=== PATIENT | female | born 1995 ===

== ENCOUNTER 2024-01-21 08:00 | Outpatient (AMB) | payer OTHER, SELFPAY ==
--- NOTE | 2024-01-21 08:24 | MHC.OFFVIS ---
Vital Signs 01/21/24 08:37 Height 5 ft 2 in Weight 145 lb BMI 26.5 BP 112/64 Blood Pressure Location Lt brachial Position Sitting Respiration 16 Pulse 85 Pulse Source Pulse Oximeter Pulse Oximetry (%) 95 Oxygen Delivery Method Room Air Intake Visit Reasons: +KURT Intake Note: Patient presents for +KURT. I feel pain in my jaw, both shoulders, neck, right hand, both elbows, both wrist, both hips, both knees and both knees. I been feeling this pain since April. I take Tylenol and Ibuprofen and is only short term relive. I try Prednisone and it really helps. Allergies carbamazepine Allergy (Mild, Verified 01/21/24 08:33) Hives Medication List - Last Reconciled 01/21/24 by Karla Avery MD fluoxetine (Prozac) 20 mg PO DAILY levonorgestrel-ethinyl estrad 0.1-20 mg-mcg 1 tab PO DAILY HPI Comments Details: Patient is a 28-year-old female who presents today for evaluation of polyarthralgias in the setting of positive KURT Patient states her history starts from when she was 14 years old when she started having polyarthralgias and was evaluated by a physician in [place]. At that time she was told she has fibromyalgia that her pain was related to her stress. 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 No medication was prescribed She again started to have issues at the age of 23 but was again told that it was related to fibromyalgia. In April 2023 patient started to have episodic joint pain involving hands, wrists, elbows, knees. These joint pains would not be associated with swelling but would be very responsive to prednisone given by her PCP. In June 2023 she was complaining of bilateral jaw pain and was initially thought to have TMJ arthritis but then was subsequently diagnosed with trigeminal neuralgia and started on carbamazepine. While on carbamazepine she started to experience ulcers in the mouth and an erythematous rash involving her entire body. The carbamazepine was stopped and she is currently on steroids (prednisone 40 mg). Has a very strong family history of lupus on both mom and dad's side. With respect to the joint pain she denies prolonged morning stiffness. She does note that sometimes her joints are swollen to the point where she can not get her rings on. Denies photosensitivity, alopecia, sicca symptoms, lymphadenopathy, chest pain/shortness of breath, foamy urine, lower extremity edema, muscle weakness, Raynaud's Also denies history of seizure, CVA, psychosis, history of kidney problems, history of cytopenias, history of VTE including PE or DVTs OB History: Never been [facility] Medical History (Updated 01/21/24 @ 09:11 by Karla Avery MD) Polyarthralgia Family History (Updated 01/21/24 @ 08:37 by AYSHA Samuel) Mother History of thyroid disease Social History (Updated 01/21/24 @ 08:36 by AYSHA Samuel) Household Members: Spouse Housing: Apartment Alcohol intake: current Comment: Rare Patient Tobacco Use Status: Never used Tobacco Review of Systems Const Details: Review of Systems Constitutional: Denies fever, chills, weight loss ENT: Denies vision changes, eye pain or eye redness, dental caries, dry mouth GI: Denies nausea, vomiting, diarrhea, abdominal pain, change in BM Pulm: Denies SOB, CASTELLANOS, hemoptysis, wheezing Cards: Denies chest pain, palpitations Skin: Denies Raynaud's, rash, nail changes, photosensitivity, CIVIL DRAFTSMAN: Denies headaches, weakness, paresthesias, recurrent falls MSK: as per HPI All other systems reviewed and are unremarkable except noted above Physical Exam Vital Signs: Last Vital Signs Pulse 85 01/21/24 08:37 Resp 16 01/21/24 08:37 BP 112/64 01/21/24 08:37 Pulse Ox 95 01/21/24 08:37 Oxygen Delivery Method Room Air 01/21/24 08:37 BMI result Body Mass Index 26.5 Physical Examination CONSTITUITIONAL Patient alert and cooperative. Well appearing and in no apparent painful distress HEENT Conjunctiva and sclera clear. ?Pupils equal round and reactive to light. ?No lymphadenopathy. ?Ulcer noted to the buccal surface anteriorly CHEST/RESPIRATORY SYSTEM Normal respiratory effort and able to speak in complete sentences. ?Clear to auscultation bilaterally. ?No crackles, rales, rhonchi, wheezes heard. CARDIAC SYSTEM Regular rate and rhythm. ?S1 and S2 heard no murmurs. ?Radial pulses intact bilaterally MSK Hands: ?Good paper final inspector strength bilaterally. No deformities noted. ?No synovitis noted to the MCPs, PIPs or DIPs. ?No tenderness to palpation of these joints. Wrists: ?Full range of motion at the wrists without pain. ?No tenderness to palpation or synovitis noted to the wrists. Elbows: Full range of motion without pain. No tenderness, weakness, swelling, increased warmth or erythema. Shoulders: Full range of motion without pain. No tenderness, weakness, swelling, increased warmth or erythema. Hips: Full range of motion without pain. Hip bursa: No tenderness to palpation Knees: ?Full range of motion. ?No tenderness, swelling, increased warmth or erythema.?No effusion or crepitations Ankles: Full range of motion. ?No tenderness, swelling, increased warmth or erythema.? Feet: ?Negative squeeze test. ?No tenderness to palpation or swelling of the MTPs. Tender points:??No tenderness to palpation of the neck, shoulders, chest, elbows, hips, buttocks or knees. SKIN Faint erythematous rash overlying her bilateral cheeks and nose could be consistent with a malar rash. Results Reviewed Results Reviewed: CMP 11/05/2023 NA 137 K 4.1 Cl 99 CO2 28 CR 0.8 BUN 12 AST 12 ALT 15 ALP 55 CBC 11/05/2023 HB 12.5 WBC 8.7 PLT 332 ESR 1 KURT 1:320 speckled Lyme negative RF<10 CCP 6 TSH 1.365 Assessment & Plan Assessment & Plan (1) Polyarthralgia: Code(s): M25.50 - Pain in unspecified joint Category: Medical Plan: #Polyarthralgia Patient with polyarthralgia in the setting of a positive KURT. At this time there was no evidence of synovitis on examination however the patient is currently taking 40 mg of prednisone which would mask any inflammatory synovitis. Her history is concerning for connective tissue disease especially given her malar type rash on her face, the ulcer in her mouth and her history of joint pain. I discussed with the patient and , she is to finish her steroids in 1 week. I asked her to wait 1 month prior to doing the following blood work. Would like to see what her numbers look like off of prednisone. She will follow up 2 weeks after she does blood work Plan - CBC, CMP, ESR, CRP, C3, C4, APS labs, Sjogrens Ab, Scleroderma Ab, UA, UPCR, RF and CCP - RTC 1 week after blood work (End of February or early Mar) Plan I spent 45 minutes reviewing the record and labs, seeing the patient, discussing the treatment plan and documenting in the medical record ? Orders: Orders Complement C3 Today M25.50 - Pain in unspecified joint Erythrocyte Sedimentation Rate Today M25.50 - Pain in unspecified joint UA w Microscopic Today M25.50 - Pain in unspecified joint Sjogren's Antibodies Today M25.50 - Pain in unspecified joint Protein Creatinine Ratio, Ur Today M25.50 - Pain in unspecified joint Cardiolipin Antibodies Today M25.50 - Pain in unspecified joint Cyclic Citrullinated Peptide Today M25.50 - Pain in unspecified joint Rheumatoid Factor Today M25.50 - Pain in unspecified joint Anti DNA DS Antibody Today M25.50 - Pain in unspecified joint Anti Extractable Nuclear Ag Today M25.50 - Pain in unspecified joint KURT Reflex Titer and Pattern Today M25.50 - Pain in unspecified joint Complement C4 Today M25.50 - Pain in unspecified joint Complete Blood Count Auto Diff Today M25.50 - Pain in unspecified joint Comprehensive Met. Panel Today M25.50 - Pain in unspecified joint C Reactive Protein Today M25.50 - Pain in unspecified joint Scleroderma 70 Antibody Today M25.50 - Pain in unspecified joint Beta-2 Glycoprotein Antibody Today M25.50 - Pain in unspecified joint Lupus Anticoagulant Panel Today M25.50 - Pain in unspecified joint DNA Double Stranded-Crithidia Today M25.50 - Pain in unspecified joint Coding Level of Care Code New Pt Level 4 (57160) Complex EM visit Add On G2211 Diagnoses Polyarthralgia M25.50
[2024-01-21 08:37] VITALS: BP 112/64; PULSE 85; RESP 16; O2SAT 95; BMI 26.5
== END 2024-01-21 09:13 | disposition home or self-care (01) ==
PROVIDERS: Visit Provider Student in an Organized Health Care Education/Training Program
DX: M25.50 Pain in unspecified joint (principal)
CPT/HCPCS: 99204; G2211

== ENCOUNTER → 2024-01-21 08:00 | Outpatient (BNVA) | payer OTHER, SELFPAY | PROVIDERS: Visit Provider Student in an Organized Health Care Education/Training Program ==

== ENCOUNTER 2024-03-10 10:09 | Outpatient (REF) | payer OTHER, SELFPAY ==
[2024-03-10 10:39] LABS: MANUAL DIFF FLAG NO
[2024-03-10 11:03] LABS: Basophils Absolute Auto 0.1 X10*3/uL (0.0-0.2); Basophils Percent Auto 0.8 % (0-2); Eosinophils Absolute Auto 0.3 X10*3/uL (0.0-0.4); Eosinophils Percent Auto 4.2 % (0-4); Hematocrit 37.4 % (37.0-47.0); Hemoglobin 12.7 g/dl (12.0-16.0); Imm Gran Abs Auto 0.02 X10*3/uL (0.00-0.03); Imm Gran Pct Auto 0.3 % (0.0-0.4); Lymphocytes Absolute Auto 2.1 X10*3/uL (1.2-4.9); Lymphocytes Percent Auto 31.8 % (20-40); Mean Corpuscular Hemoglobin 33.3 pg (27.0-33.0); Mean Corpuscular Volume 98.2 fL (80.0-98.0); Mean Platelet Volume 9.6 fL (9.4-12.3); Monocytes Absolute Auto 0.5 X10*3/uL (0.1-1.2); Monocytes Percent Auto 7.5 % (2-11); Neutrophils Absolute Auto 3.6 x10*3/uL (2.0-8.3); Neutrophils Percent Auto 55.4 % (45-73); Platelet Count 312 X10*3/uL (160-400); Red Blood Count 3.81 X10*6/uL (4.20-5.50); Red Cell Distribution Width 11.9 % (11.0-16.0); White Blood Count 6.4 X10*3/uL (4.8-10.8)
[2024-03-10 11:10] LABS: Appearance Urine Clear; Color Urine Yellow; Glucose Urine UA Negative (Negative); Leukocyte Esterase Urine Trace (Negative); Nitrite Urine Negative (Negative); UMIC TRIGGER UA YES; Urine Blood Negative (Negative); Urine Ketones Negative (Negative); Urine Protein Negative (Neg-Trace)
[2024-03-10 11:19] LABS: Bacteria Urine None Seen (None Seen); Hyaline Casts Urine 0-2 /LPF (0-2); RBC Urine 0-2 /HPF (0-2); WBC Urine 0-5 /HPF (0-5)
[2024-03-10 11:41] LABS: Erythrocyte Sedimentation Rate 10 MM/HR (0-20)
[2024-03-10 11:46] LABS: Rheumatoid Factor < 13.0 IU/mL (<15.0)
[2024-03-10 11:51] LABS: Alanine Aminotransferase 13 U/L (0-31); Alkaline Phosphatase 68 U/L (39-117); Anion Gap 10 (12-20); Aspartate Amino Transferase 24 U/L (5-31); Bilirubin Total 0.3 mg/dL (0.0-1.0); Blood Urea Nitrogen 10 mg/dL (9-16); C Reactive Protein 2.52 mg/dL (< or = 0.50); Calcium 8.7 mg/dL (8.4-10.2); Carbon Dioxide 23 mmol/L (22-29); Chloride 101 mmol/L (96-108); Estimated Glomerular Filt Rate > 60; Glucose Random 72 mg/dL (60-115); Sodium 130 mmol/L (135-145); Total Protein 7.3 g/dL (6.5-8.0)
[2024-03-10 12:18] LABS: Creatinine Urine 105.01 mg/dL; Protein/Creatinine Ratio, Ur 0.08 (<0.2); Total Protein Urine Random 8 mg/dL (<12)
[2024-03-11 12:59] LABS: Complement C3 157 mg/dL (83-193)
[2024-03-11 16:23] LABS: Anti DNA DS Antibody <1 IU/mL; Antibody to SS-A Antigen <1.0 NEG AI (<1.0 NEG); Antibody to SS-B Antigen <1.0 NEG AI (<1.0 NEG); SM/Ribonucleoprotein Ab <1.0 NEG AI (<1.0 NEG); Scleroderma 70 Antibody <1.0 NEG AI (<1.0 NEG); Smith Protein <1.0 NEG AI (<1.0 NEG)
[2024-03-11 16:28] LABS: Cardiolipin IgG Ab <2.0 GPL-U/mL; Cardiolipin IgM Ab <2.0 MPL-U/mL
[2024-03-12 20:54] LABS: Cyclic Citrullinated Peptide <16 UNITS
[2024-03-13 16:13] LABS: DNAds, Crithidia Antibody Negative (Negative)
[2024-03-14 21:52] LABS: PTT (LAC) Screen 33 sec (<=40)
[2024-03-16 05:19] LABS: Beta-2 Glycoprotein IgA <2.0 U/mL (<20.0); Beta-2 Glycoprotein IgG <2.0 U/mL (<20.0); Beta-2 Glycoprotein IgM <2.0 U/mL (<20.0)
[2024-03-16 15:32] LABS: Anti Nuclear Antibody Pattern Nuclear, Speckled; Anti Nuclear Antibody Screen POSITIVE (NEGATIVE)
== END 2024-03-10 10:10 | disposition home or self-care (01) ==
LOC: HO.LAB 10:09
PROVIDERS: PCP Family Medicine; Visit Provider Student in an Organized Health Care Education/Training Program
DX: M25.50 Pain in unspecified joint (principal)
CPT/HCPCS: 36415; 80053; 81001; 82570; 84156; 85025; 85597; 85598; 85613; 85652; 85730; 86038; 86039; 86140; 86146; 86147; 86160; 86200; 86225; 86235; 86255; 86431

== ENCOUNTER 2024-03-23 07:25 | Outpatient (AMB) | payer OTHER, SELFPAY ==
--- NOTE | 2024-03-23 07:27 | MHC.OFFVIS ---
Vital Signs 03/23/24 07:35 Height 5 ft 2 in BMI Reason not done Patient refused/unable BP 112/60 Blood Pressure Location Rt brachial Position Sitting Respiration 16 Pulse 81 Pulse Source Pulse Oximeter Pulse Oximetry (%) 97 Oxygen Delivery Method Room Air Intake Visit Reasons: follow up Intake Note: patient presents for follow up. Allergies carbamazepine Allergy (Mild, Verified 01/21/24 08:33) Hives Medication List - Last Reconciled 03/23/24 by Karla Avery MD fluoxetine (Prozac) 20 mg PO DAILY gabapentin 300 mg PO BID levonorgestrel-ethinyl estrad 0.1-20 mg-mcg 1 tab PO DAILY oxcarbazepine 600 mg PO BID HPI Comments Details: Patient is a 28-year-old female with depression and trigeminal neuralgia here today for follow up of polyarthralgias Interval History: Patient last seen 01/2024. At that time she was being evaluated for polyarthralgias. Of note she was on 40 mg of prednisone which impeded the examination as there was no evidence of synovitis. Plan at that time was for her to complete her Prednisone and be off the medication for at least 2 weeks prior to checking her blood work and then following up with the me. Today, Patient has been off the prednisolone for 4 weeks. She is noticing worsening joint stiffness up to an hour. Rashes. She also notes that because of her worsening joint pain she has been eating more which has caused her to gain weight which has also increased her depression. Rheumatologic History: Initial history: Patient states her history starts from when she was 14 years old when she started having polyarthralgias and was evaluated by a physician in [place]. At that time she was told she has fibromyalgia that her pain was related to her stress. 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 No medication was prescribed She again started to have issues at the age of 23 but was again told that it was related to fibromyalgia. In April 2023 patient started to have episodic joint pain involving hands, wrists, elbows, knees. These joint pains would not be associated with swelling but would be very responsive to prednisone given by her PCP. In June 2023 she was complaining of bilateral jaw pain and was initially thought to have TMJ arthritis but then was subsequently diagnosed with trigeminal neuralgia and started on carbamazepine. While on carbamazepine she started to experience ulcers in the mouth and an erythematous rash involving her entire body. The carbamazepine was stopped and she is currently on steroids (prednisone 40 mg). Has a very strong family history of lupus on both mom and dad's side. With respect to the joint pain she denies prolonged morning stiffness. She does note that sometimes her joints are swollen to the point where she can not get her rings on. Denies photosensitivity, alopecia, sicca symptoms, lymphadenopathy, chest pain/shortness of breath, foamy urine, lower extremity edema, muscle weakness, Raynaud's Also denies history of seizure, CVA, psychosis, history of kidney problems, history of cytopenias, history of VTE including PE or DVTs OB History: Never been Current Rheumatology Medication(s): [facility] Medical History (Updated 03/23/24 @ 09:17 by Karla Avery MD) Fibromyalgia Undifferentiated connective tissue disease Polyarthralgia Family History Mother History of thyroid disease Social History Household Members: Spouse Housing: Apartment Alcohol intake: current Comment: Rare Patient Tobacco Use Status: Never used Tobacco Review of Systems Const Details: Review of Systems Constitutional: Denies fever, chills, weight loss ENT: Denies vision changes, eye pain or eye redness, dental caries, dry mouth GI: Denies nausea, vomiting, diarrhea, abdominal pain, change in BM Pulm: Denies SOB, CASTELLANOS, hemoptysis, wheezing Cards: Denies chest pain, palpitations Skin: Denies Raynaud's, rash, nail changes, photosensitivity, BODY AND FRAME MAN: Denies headaches, weakness, paresthesias, recurrent falls MSK: as per HPI All other systems reviewed and are unremarkable except noted above Physical Exam Vital Signs: Last Vital Signs Pulse 81 03/23/24 07:35 Resp 16 03/23/24 07:35 BP 112/60 03/23/24 07:35 Pulse Ox 97 03/23/24 07:35 Oxygen Delivery Method Room Air 03/23/24 07:35 Vital signs reviewed Physical Examination CONSTITUITIONAL Patient alert and cooperative. Well appearing and in no apparent painful distress HEENT Conjunctiva and sclera clear. ?Pupils equal round and reactive to light. ?No lymphadenopathy. ? CHEST/RESPIRATORY SYSTEM Normal respiratory effort and able to speak in complete sentences. ?Clear to auscultation bilaterally. ?No crackles, rales, rhonchi, wheezes heard. CARDIAC SYSTEM Regular rate and rhythm. ?S1 and S2 heard no murmurs. ?Radial pulses intact bilaterally MSK Hands: ?Good dog walker strength bilaterally. No deformities noted. ?No synovitis noted to the MCPs, PIPs or DIPs. ?No tenderness to palpation of these joints. Wrists: ?Full range of motion at the wrists without pain. ?No tenderness to palpation or synovitis noted to the wrists. Elbows: Full range of motion without pain. No tenderness, weakness, swelling, increased warmth or erythema. Shoulders: Full range of motion without pain. No tenderness, weakness, swelling, increased warmth or erythema. Hips: Full range of motion without pain. Hip bursa: Tenderness to palpation bilaterally Knees: ?Full range of motion. ?No tenderness, swelling, increased warmth or erythema.?No effusion or crepitations Ankles: Full range of motion. ?No tenderness, swelling, increased warmth or erythema.? Feet: ?Negative squeeze test. ?No tenderness to palpation or swelling of the MTPs. Tender points: Patient with several tender points including bilateral trapezius, supraspinatus, greater trochanters, anterior costochondral junctions, bilateral pes anserine bursa locations, bilateral gluteal areas, bilateral suboccipital muscle insertions, lateral malleoli SKIN Skin intact without rashes. Results Reviewed Results Reviewed: Laboratory Tests 03/10/24 10:37 WBC 6.4 RBC 3.81 L Hgb 12.7 Hct 37.4 Plt Count 312 Eos % (Auto) 4.2 H ESR 10 Sodium 130 L Potassium 4.0 Chloride 101 Carbon Dioxide 23 BUN 10 Creatinine 0.66 Calcium 8.7 Total Bilirubin 0.3 AST 24 ALT 13 Alkaline Phosphatase 68 C-Reactive Protein 2.52 H Rheumatoid Factor < 13.0 Cycl Citrul Peptide IgG <16 KURT Screen POSITIVE A KURT Titer 1:160 H KURT Pattern Nuclear, Speckled A SS-A/Ro Antibody <1.0 NEG SS-B/La Antibody <1.0 NEG Sm (Slade) Antibody <1.0 NEG SM/AIRLINE LOUNGE RECEPTIONIST IgG Antibody <1.0 NEG Scl-70 Scleroderma Ab <1.0 NEG Double Strand DNA Ab <1 Anti-ds DNA (Crithidia) Negative Beta-2-GPI IgG Ab <2.0 Beta-2-GPI IgA Ab <2.0 Beta-2-GPI IgM Ab <2.0 Anti-Cardiolipin IgG Ab <2.0 Anti-Cardiolipin IgM Ab <2.0 Complement C3 157 Complement C4 20 Assessment & Plan Assessment & Plan (1) Undifferentiated connective tissue disease: Code(s): M35.9 - Systemic involvement of connective tissue, unspecified Category: Medical Plan: #UCTD Patient is a 28-year-old female here today for evaluation of polyarthralgias. Of note her blood work came back with a positive KURT 1:160 and significantly elevated CRP 2.5. Given her inflammatory type joint pain symptoms and her rash I think it is reasonable for her to be diagnosed with undifferentiated connective tissue disease/lupus like. Her lupus labs including complement, double-stranded DNA and Slade were all normal. Based on this diagnosis Plaquenil would be the best medication to start with. Plan - Hydroxychloroquine 200mg bid - RTC 4 months - Labs before visit: CBC, CMP, ESR, CRP, C3, C4, dsDNA, UA, UPC (2) Fibromyalgia: Code(s): M79.7 - Fibromyalgia Category: Medical Plan: #Fibromyalgia Patient also has a component of fibromyalgia was evidenced by multiple tender points on examination. She is already on gabapentin 300 mg p.o. b.i.d.. We will try the Plaquenil 1st and see what improvement we can get with that before trialing other fibromyalgia type medications. Plan - Continue gabapentin 300mg bid - Encouraged light exercise and stretching - Endocrinology referral to evaluate for GLP 1 injections for weight loss Plan I spent 30 minutes reviewing the record and labs, taking a history, examining the patient, discussing the treatment plan and documenting in the medical record Orders: Orders Complement C4 3 Months M35.9 - Systemic involvement of connective tissue, unspecified Comprehensive Met. Panel 3 Months M35.9 - Systemic involvement of connective tissue, unspecified Protein Creatinine Ratio, Ur 3 Months M35.9 - Systemic involvement of connective tissue, unspecified Complement C3 3 Months M35.9 - Systemic involvement of connective tissue, unspecified Complete Blood Count Auto Diff 3 Months M35.9 - Systemic involvement of connective tissue, unspecified C Reactive Protein 3 Months M35.9 - Systemic involvement of connective tissue, unspecified Erythrocyte Sedimentation Rate 3 Months M35.9 - Systemic involvement of connective tissue, unspecified UA w Microscopic 3 Months M35.9 - Systemic involvement of connective tissue, unspecified Referrals Endocrinology Referral R63.5 - Abnormal weight gain Medications: New hydroxychloroquine (Plaquenil) 200 mg PO BID 180 tabs 1RF M35.9 - Systemic involvement of connective tissue, unspecified Coding Level of Care Code Est Pt Level 4 (29440) Complex EM visit Add On G2211 Diagnoses Undifferentiated connective tissue disease M35.9 Fibromyalgia M79.7
[2024-03-23 07:35] VITALS: BP 112/60; PULSE 81; RESP 16; O2SAT 97
== END 2024-03-23 08:19 | disposition home or self-care (01) ==
PROVIDERS: Visit Provider Student in an Organized Health Care Education/Training Program
DX: M35.89 Other specified systemic involvement of connective tissue (principal); M79.7 Fibromyalgia
CPT/HCPCS: 99214; G2211

== ENCOUNTER → 2024-03-23 07:25 | Outpatient (BNVA) | payer OTHER, SELFPAY | PROVIDERS: Visit Provider Student in an Organized Health Care Education/Training Program ==

== ENCOUNTER 2024-04-06 07:48 | Outpatient (AMB) | payer OTHER, SELFPAY ==
[2024-04-06 07:49] VITALS: BP 102/70; PULSE 76; O2SAT 95
--- NOTE | 2024-04-06 07:49 | MHC.OFFVIS ---
Vital Signs 04/06/24 07:49 Height 5 ft 2 in Weight 163 lb 12.855 oz BMI 30.0 BP 102/70 Blood Pressure Location Lt brachial Position Sitting Pulse 76 Pulse Source Pulse Oximeter Pulse Oximetry (%) 95 Oxygen Delivery Method Room Air Intake Visit Reasons: Abnormal weight gain Intake Note: New patient internally referred by Dr. Avery for Abnormal weight gain, patient requesting assistance for eval for GLP 1. Air Valve Mechanic Required: No Accompanied by: Spouse Allergies carbamazepine Allergy (Mild, Verified 04/06/24 07:57) Hives Medication List - Last Reconciled 04/06/24 by Yair Meadows MD fluoxetine (Prozac) 20 mg PO DAILY gabapentin 300 mg PO BID hydroxychloroquine (Plaquenil) 200 mg PO BID levonorgestrel-ethinyl estrad 0.1-20 mg-mcg 1 tab PO DAILY ondansetron HCl 4 mg PO Q8H oxcarbazepine 600 mg PO BID semaglutide 0.25 mg subcut QWEEK HPI Comments Details: This is a 28-year-old white female sent to endocrinology for evaluation of normal weight gain. Patient states weight gain of lbs over short period of time . She has not tried formal diets . She has seen a naval police coxswain in [place] . .She was prescribed semaglutide by RO started last wk. Feels nauseous but better with Zofran . Bowel movements more frequent with semaglutidee. She is currently on a control pill. She is not actively planning . Snores at night . Not taking steroids on regular basis . No thyroid problems . No sx of Antonio's Syndrome . [facility] Medical History (Updated 04/06/24 @ 07:57 by Yair Meadows MD) Weight gain Fibromyalgia Undifferentiated connective tissue disease Polyarthralgia Family History Mother History of thyroid disease Social History Household Members: Spouse Housing: Apartment Alcohol intake: current Comment: Rare Patient Tobacco Use Status: Never used Tobacco Physical Exam Vital Signs: Last Vital Signs Pulse 76 04/06/24 07:49 BP 102/70 04/06/24 07:49 Pulse Ox 95 04/06/24 07:49 Oxygen Delivery Method Room Air 04/06/24 07:49 BMI result Body Mass Index 30.0 Const Other: There are no cushingoid features. Thyroid gland is normal size weighs about 15 g Assessment & Plan Assessment & Plan (1) Weight gain: Code(s): R63.5 - Abnormal weight gain Category: Medical Plan: This is a 28-year-old white female with a history of abnormal weight gain. There was no clear endocrine etiology behind the patient's symptoms but rule out thyroid disease plan is to check a TSH and free T4. Will have patient follow up with the naval police coxswain. Will have patient stop the compounded Wegovy and I prescribed FDA approved Wegovy 0.25 mg Q weekly. . Went over side effects of Wegovy including but not limited to nausea, vomiting rare risk of pancreatitis. Also suggested patient talk to primary provider about getting a sleep study to rule out sleep apnea. . Will have patient follow up with Melissa Acosta NP in 1 month Orders: Orders Free T4 (Free Thyroxine) Today R63.5 - Abnormal weight gain Thyroid Stimulating Hormone Today R63.5 - Abnormal weight gain Medications: New semaglutide for 4 weeks 0.25 mg (0.368 mL) subcut QWEEK 3 mL 5RF Coding Level of Care Code New Pt Level 4 (40274) Diagnoses Weight gain R63.5
== END 2024-04-06 08:36 | disposition home or self-care (01) ==
PROVIDERS: Visit Provider Internal Medicine Endocrinology, Diabetes & Metabolism
DX: R63.5 Abnormal weight gain (principal)
CPT/HCPCS: 99204

== ENCOUNTER 2024-04-06 08:39 | Outpatient (REF) | payer OTHER, SELFPAY ==
[2024-04-06 11:11] LABS: Free T4 (Free Thyroxine) 0.89 ng/dL (0.71-1.85); Thyroid Stimulating Hormone 1.21 uIU/mL (0.32-4.0)
== END 2024-04-06 08:40 | disposition home or self-care (01) ==
LOC: HO.10HDL 08:39
PROVIDERS: Visit Provider Internal Medicine Endocrinology, Diabetes & Metabolism
DX: R63.5 Abnormal weight gain (principal)
CPT/HCPCS: 36415; 84439; 84443

== ENCOUNTER 2024-05-04 07:48 | Outpatient (AMB) | payer OTHER, SELFPAY ==
--- NOTE | 2024-05-04 06:58 | A.OFFVIS_ITS ---
Vital Signs 05/04/24 07:50 Height 5 ft 2 in Weight 154 lb 1.65 oz BMI 28.2 BP 102/68 Blood Pressure Location Rt brachial Position Sitting Pulse 83 Pulse Source Pulse Oximeter Pulse Oximetry (%) 99 Oxygen Delivery Method Room Air Intake Visit Reasons: weight gain Intake Note: Patient presents today to re-establish treatment for Weight Gain, last seen Dr Yair Meadows: Vacuum Technician Required: No Accompanied by: Self / Same As Patient Allergies carbamazepine Allergy (Mild, Verified 05/04/24 07:51) Hives Medication List - Last Reconciled 05/04/24 by Melissa Wolf NP fluoxetine (Prozac) 20 mg PO DAILY gabapentin 300 mg PO BID hydroxychloroquine (Plaquenil) 200 mg PO BID levonorgestrel-ethinyl estrad 0.1-20 mg-mcg 1 tab PO DAILY oxcarbazepine 600 mg PO BID tirzepatide (weight loss) (Zepbound) 2.5 mg (0.5 mL) subcut QWEEK 28 days HPI Comments Details: This is a 29-year-old white female sent to endocrinology for evaluation of normal weight gain. She was seen by Dr. Meadows one month ago. At that time he advised she stop compounded semaglutide which was prescribed by [facility] and a prescription for Zepbound 2.5mg was started. At this point in time she is [place] paying for Zepbound as her insurance requires participation in a three-month program prior to approval of weight loss medication. She has lost 9 pounds since her initial visit one month ago. She is being seen weekly by a record press tender in [place]. She has a eating disorder of body dysphoria. 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 She does not log her intake of food as she feels this triggers guilt. She balances her food and does eat 3 healthy meals per day. She uses mindfulness, meditation and yoga for stress management. She is currently doing a conquer challenge which involves selecting a mythical figure (Kiran Fernández) and doing a physical challenge of completing 70 miles in 3 months. She likes to bike in his planning to do this. 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 When she was taking the compounded semaglutide she was having some nausea which was relieved by Zofran. She has discontinued the Zofran since starting Zepbound. Her bowel movements have been more frequent. She is currently taking control pills and is not actively planning . She is consistently using condoms in addition to the control pill while she is taking Zepbound. She has a history of low sodium in his not certain what type of workup has been done in the past. She has follow up with her PCP who ordered the electrolytes. [facility] Medical History (Updated 05/04/24 @ 07:01 by Melissa Wolf NP) Obesity Weight gain Fibromyalgia Undifferentiated connective tissue disease Polyarthralgia Family History Mother History of thyroid disease Social History Household Members: Spouse Housing: Apartment Alcohol intake: current Comment: Rare Patient Tobacco Use Status: Never used Tobacco Physical Exam Const Other: Absence of Cushingoid features. Absence of acromegalic features. Neck exam reveals nl size thyroid about 15 gms. No thyroid nodules palpable. Heart S1 S2, Reg R/R. No M/R G. Skin exam reveals absence of vitiligo or acanthosis nigrica ns. No abd straie. Assessment & Plan Assessment & Plan (1) Obesity: Code(s): E66.9 - Obesity, unspecified Category: Medical Plan: This is a 28-year-old white female with a history of abnormal weight gain. There was no clear endocrine etiology behind the patient's symptoms. Recent thyroid testing was within normal limits. She is doing well with weight loss on Zepbound, she will continue with weekly visits to the record press tender. She is employing stress management techniques of yoga, mindfulness and meditation. She is exercising regularly and is now participating in a 3 month 70 mile challenge with biking. We briefly discussed the learn program for weight management and she will consider this although his already actively working on many of these weight loss strategies and appears to have good insite into her triggers for emotional eating. She is on control and is aware that is up lb can reduce the effectiveness of control. She has consistently been using condoms in addition to the control pill since starting Zepbound. Medications: Refilled tirzepatide (weight loss) (Zepbound) for 4 weeks 2.5 mg (0.5 mL) subcut QWEEK 28 days 2 mL 3RF Coding Level of Care Code Est Pt Level 3 (07313) Complex EM visit Add On G2211 Diagnoses Obesity E66.9 Time Spent (min) 20 Comment Time spent reviewing labs/provider notes, face to face, chart doc
[2024-05-04 07:50] VITALS: BP 102/68; PULSE 83; O2SAT 99; BMI 28.2
== END 2024-05-04 08:22 | disposition home or self-care (01) ==
LOC: HO.ENCR 07:49
PROVIDERS: Visit Provider Nurse Practitioner Adult Health
DX: E66.9 Obesity, unspecified (principal)
CPT/HCPCS: 99213; G2211

== ENCOUNTER → 2024-05-04 07:48 | Outpatient (BNVA) | payer OTHER, SELFPAY | PROVIDERS: Visit Provider Nurse Practitioner Adult Health ==

== ENCOUNTER 2024-06-04 07:48 | Outpatient (AMB) | payer OTHER, SELFPAY ==
--- NOTE | 2024-06-04 07:47 | A.OFFVIS_ITS ---
Vital Signs 06/04/24 08:02 Height 5 ft 2 in Weight 145 lb 8.081 oz BMI 26.6 BP 106/70 Blood Pressure Location Rt brachial Position Sitting Pulse 75 Pulse Source Pulse Oximeter Pulse Oximetry (%) 98 Oxygen Delivery Method Room Air Intake Visit Reasons: Weight gain Intake Note: Patient presents today for a follow-up on Obesity/Weight Management: Spanish Professor Required: No Accompanied by: Self / Same As Patient Allergies carbamazepine Allergy (Mild, Verified 05/04/24 07:51) Hives HPI Comments Details: This is a 29-year-old white female sent to endocrinology for evaluation of normal weight gain. She was seen by Dr. Meadows two months ago. At that time he advised she stop compounded semaglutide which was prescribed by [facility] and a prescription for Zepbound 2.5mg was started. At this point in time she is faulk[place] paying for Zepbound as her insurance requires participation in a three-month program prior to approval of weight loss medication. She has lost 18 pounds since her initial visit two months ago. She is being seen weekly by a lead nitrate processor in [place]. She has a eating disorder of body dysphoria. 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 She does not log her intake of food as she feels this triggers guilt. She balances her food and does eat 3 healthy meals per day. She uses mindfulness, meditation and yoga for stress management. She is currently doing a conquer challenge which involves selecting a mythical figure (Kiran Fernández) and doing a physical challenge of completing 70 miles in 3 months. She likes to bike in his planning to do this. 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 When she was taking the compounded semaglutide she was having some nausea which was relieved by Zofran. She has discontinued the Zofran since starting Zepbound. Her bowel movements have been more frequent. She did notice an interaction with OTC headache medication and Zepbound which caused her heart to race. She has discontinued the OTC medication and has been consistently wearing her glasses and that has helped with the headaches. She is currently taking control pills and is not actively planning . She is consistently using condoms in addition to the control pill while she is taking Zepbound. [facility] Medical History Obesity Weight gain Fibromyalgia Undifferentiated connective tissue disease Polyarthralgia Family History Mother History of thyroid disease Social History Household Members: Spouse Housing: Apartment Alcohol intake: current Comment: Rare Patient Tobacco Use Status: Never used Tobacco Physical Exam Vital Signs: Last Vital Signs Pulse 75 06/04/24 08:02 BP 106/70 06/04/24 08:02 Pulse Ox 98 06/04/24 08:02 Oxygen Delivery Method Room Air 06/04/24 08:02 BMI result Body Mass Index 26.6 Const Other: Absence of Cushingoid features. Absence of acromegalic features. Neck exam reveals nl size thyroid about 15 gms. No thyroid nodules palpable. Heart S1 S2, Reg R/R. No M/R G. Skin exam reveals absence of vitiligo or acanthosis nigricans.no edema Assessment & Plan Assessment & Plan (1) Obesity: Code(s): E66.9 - Obesity, unspecified Category: Medical Plan: This is a 29-year-old white female with a history of abnormal weight gain. There was no clear endocrine etiology behind the patient's symptoms. Recent thyroid testing was within normal limits. She is doing well with weight loss on Zepbound, she will continue with weekly visits to the lead nitrate processor. She is employing stress management techniques of yoga, mindfulness and meditation. She is exercising regularly and is now participating in a 3 month 70 mile challenge with biking. She will continue faulkner pay Zepbound. At the end of June she will have completed a 90 day weight loss program combining exercise, balanced calorie reduced diet, nutrition visits and exercise and at that time we will submit a prescription for Zepbound. Coding Level of Care Code Est Pt Level 3 (86889) Complex EM visit Add On G2211 Diagnoses Obesity E66.9 Time Spent (min) 20 Comment Time spent reviewing labs/provider notes, face to face, chart doc
[2024-06-04 08:02] VITALS: BP 106/70; PULSE 75; O2SAT 98; BMI 26.6
== END 2024-06-04 08:17 | disposition home or self-care (01) ==
LOC: HO.ENCR 07:49
PROVIDERS: Visit Provider Nurse Practitioner Adult Health
DX: E66.9 Obesity, unspecified (principal)
CPT/HCPCS: 99213; G2211

== ENCOUNTER 2024-06-15 07:47 | Outpatient (REF) | payer OTHER, SELFPAY ==
[2024-06-15 10:14] LABS: Appearance Urine Clear; Color Urine Yellow; Glucose Urine UA Negative (Negative); Leukocyte Esterase Urine Small (1+) (Negative); Nitrite Urine Negative (Negative); UMIC TRIGGER UA YES; Urine Blood Negative (Negative); Urine Ketones Trace mg/dL (Negative); Urine Protein 30 (1+) mg/dL (Neg-Trace)
[2024-06-15 10:23] LABS: Bacteria Urine None Seen (None Seen); Hyaline Casts Urine 0-2 /LPF (0-2); RBC Urine 0-2 /HPF (0-2); Squamous Epithelial Cell Urine >20 /HPF (0-2)
[2024-06-15 10:42] LABS: Creatinine Urine 215.74 mg/dL; Protein/Creatinine Ratio, Ur 0.05 (<0.2); Total Protein Urine Random 11 mg/dL (<12)
[2024-06-15 11:06] LABS: Basophils Absolute Auto 0.1 X10*3/uL (0.0-0.2); Basophils Percent Auto 1.6 % (0-2); Eosinophils Absolute Auto 0.1 X10*3/uL (0.0-0.4); Eosinophils Percent Auto 2.1 % (0-4); Hematocrit 35.9 % (37.0-47.0); Hemoglobin 11.9 g/dl (12.0-16.0); Lymphocytes Absolute Auto 2.7 X10*3/uL (1.2-4.9); Lymphocytes Percent Auto 70.3 % (20-40); MANUAL DIFF FLAG SCAN; Mean Corpuscular HGB Conc 33.1 g/dl (31.0-35.0); Mean Corpuscular Hemoglobin 32.2 pg (27.0-33.0); Mean Corpuscular Volume 97.3 fL (80.0-98.0); Mean Platelet Volume 10.3 fL (9.4-12.3); Monocytes Absolute Auto 0.5 X10*3/uL (0.1-1.2); Monocytes Percent Auto 12.3 % (2-11); Neutrophils Absolute Auto 0.5 x10*3/uL (2.0-8.3); Neutrophils Percent Auto 13.7 % (45-73); Platelet Count 244 X10*3/uL (160-400); Red Blood Count 3.69 X10*6/uL (4.20-5.50); Red Cell Distribution Width 11.9 % (11.0-16.0); SCAN SMEAR FLAG 1; White Blood Count 3.8 X10*3/uL (4.8-10.8)
[2024-06-15 11:26] LABS: SLIDE REVIEW VERIFIED
[2024-06-15 11:36] LABS: Alanine Aminotransferase 15 U/L (0-31); Albumin Level 4.1 g/dL (3.5-5.0); Alkaline Phosphatase 59 U/L (39-117); Anion Gap 10 (12-20); Aspartate Amino Transferase 21 U/L (5-31); Bilirubin Total 0.2 mg/dL (0.0-1.0); Blood Urea Nitrogen 7 mg/dL (9-16); C Reactive Protein 0.65 mg/dL (< or = 0.50); Calcium 8.5 mg/dL (8.4-10.2); Carbon Dioxide 26 mmol/L (22-29); Chloride 105 mmol/L (96-108); Estimated Glomerular Filt Rate > 60; Glucose Random 80 mg/dL (60-115); Potassium 3.9 mmol/L (3.3-5.1); Sodium 137 mmol/L (135-145); Total Protein 6.7 g/dL (6.5-8.0)
[2024-06-15 12:20] LABS: Erythrocyte Sedimentation Rate 6 MM/HR (0-20)
[2024-06-18 03:58] LABS: Complement C3 117 mg/dL (83-193)
== END 2024-06-15 07:48 | disposition home or self-care (01) ==
LOC: HO.10HDL 07:47
PROVIDERS: Visit Provider Student in an Organized Health Care Education/Training Program
DX: M35.9 Systemic involvement of connective tissue, unspecified (principal)
CPT/HCPCS: 36415; 80053; 81001; 82570; 84156; 85025; 85652; 86140; 86160

== ENCOUNTER 2024-06-17 07:39 | Outpatient (AMB) | payer OTHER, SELFPAY ==
--- NOTE | 2024-06-17 07:43 | A.OFFVIS_ITS ---
Vital Signs 06/17/24 07:50 Height 5 ft 2 in Weight 145 lb 8.081 oz BMI 26.6 BP 100/60 Blood Pressure Location Rt brachial Position Sitting Respiration 16 Pulse 86 Pulse Source Pulse Oximeter Pulse Oximetry (%) 98 Oxygen Delivery Method Room Air Intake Visit Reasons: follow up Intake Note: Patient presents for Fibromyalgia/UCTD follow up. Allergies carbamazepine Allergy (Mild, Verified 06/17/24 07:49) Hives Medication List - Last Reconciled 06/17/24 by Karla Avery MD amoxicillin 500 mg PO TID fluoxetine (Prozac) 20 mg PO DAILY gabapentin 300 mg PO BID hydroxychloroquine (Plaquenil) 200 mg PO BID levonorgestrel-ethinyl estrad 0.1-20 mg-mcg 1 tab PO DAILY oxcarbazepine 600 mg PO BID tirzepatide (weight loss) (Zepbound) 2.5 mg (0.5 mL) subcut QWEEK 4 weeks HPI Comments Details: Patient is a 28-year-old female with depression, trigeminal neuralgia and undifferentiated connective tissue disease here today for follow up Interval History: Patient last seen 03/2024. at that time she was following up for polyarthralgias and diagnosed with undifferentiated connective tissue disease and started on Plaquenil. Today, Patient has been tolerating Plaquenil 200 mg twice a day without any side effects. Has noticed improvement in her flares and joint pain. currently being treated for tooth infection Rheumatologic History: Initial history: Patient states her history starts from when she was 14 years old when she started having polyarthralgias and was evaluated by a physician in [place]. At that time she was told she has fibromyalgia that her pain was related to her stress. 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 No medication was prescribed She again started to have issues at the age of 23 but was again told that it was related to fibromyalgia. In April 2023 patient started to have episodic joint pain involving hands, wrists, elbows, knees. These joint pains would not be associated with swelling but would be very responsive to prednisone given by her PCP. In June 2023 she was complaining of bilateral jaw pain and was initially thought to have TMJ arthritis but then was subsequently diagnosed with trigeminal neuralgia and started on carbamazepine. While on carbamazepine she started to experience ulcers in the mouth and an erythematous rash involving her entire body. The carbamazepine was stopped and she is currently on steroids (prednisone 40 mg). Has a very strong family history of lupus on both mom and dad's side. With respect to the joint pain she denies prolonged morning stiffness. She does note that sometimes her joints are swollen to the point where she can not get her rings on. Denies photosensitivity, alopecia, sicca symptoms, lymphadenopathy, chest pain/shortness of breath, foamy urine, lower extremity edema, muscle weakness, Raynaud's Also denies history of seizure, CVA, psychosis, history of kidney problems, history of cytopenias, history of VTE including PE or DVTs OB History: Never been Current Rheumatology Medication(s): Hydroxychloroquine 200 mg twice a day PFSH Medical History Obesity Weight gain Fibromyalgia Undifferentiated connective tissue disease Polyarthralgia Family History Mother History of thyroid disease Social History Household Members: Spouse Housing: Apartment Alcohol intake: current Comment: Rare Patient Tobacco Use Status: Never used Tobacco Review of Systems Const Details: Review of Systems Constitutional: Denies fever, chills, weight loss ENT: Denies vision changes, eye pain or eye redness, dental caries, dry mouth GI: Denies nausea, vomiting, diarrhea, abdominal pain, change in BM Pulm: Denies SOB, CASTELLANOS, hemoptysis, wheezing Cards: Denies chest pain, palpitations Skin: Denies Raynaud's, rash, nail changes, photosensitivity, INVESTMENT BANKING ASSOCIATE: Denies headaches, weakness, paresthesias, recurrent falls MSK: as per HPI All other systems reviewed and are unremarkable except noted above Physical Exam Vital Signs: Last Vital Signs Pulse 86 06/17/24 07:50 Resp 16 06/17/24 07:50 BP 100/60 06/17/24 07:50 Pulse Ox 98 06/17/24 07:50 Oxygen Delivery Method Room Air 06/17/24 07:50 BMI result Body Mass Index 26.6 Vital signs reviewed Physical Examination CONSTITUITIONAL Patient alert and cooperative. Well appearing and in no apparent painful distress HEENT Conjunctiva and sclera clear. ?Pupils equal round and reactive to light. ?No lymphadenopathy. ? CHEST/RESPIRATORY SYSTEM Normal respiratory effort and able to speak in complete sentences. ?Clear to auscultation bilaterally. ?No crackles, rales, rhonchi, wheezes heard. CARDIAC SYSTEM Regular rate and rhythm. ?S1 and S2 heard no murmurs. ?Radial pulses intact bilaterally MSK Hands: ?Good inspector printed circuit boards strength bilaterally. No deformities noted. ?No synovitis noted to the MCPs, PIPs or DIPs. ?No tenderness to palpation of these joints. Wrists: ?Full range of motion at the wrists without pain. ?No tenderness to palpation or synovitis noted to the wrists. Elbows: Full range of motion without pain. No tenderness, weakness, swelling, increased warmth or erythema. Shoulders: Full range of motion without pain. No tenderness, weakness, swelling, increased warmth or erythema. Knees: ?Full range of motion. ?No tenderness, swelling, increased warmth or erythema.?No effusion or crepitations Ankles: Full range of motion. ?No tenderness, swelling, increased warmth or erythema.? Feet: ?Negative squeeze test. ?No tenderness to palpation or swelling of the MTPs. Tender points: Patient with several tender points including bilateral trapezius, supraspinatus, greater trochanters, anterior costochondral junctions, bilateral pes anserine bursa locations, bilateral gluteal areas, bilateral suboccipital muscle insertions, lateral malleoli SKIN Skin intact without rashes. Results Reviewed Results Reviewed: Laboratory Tests 03/10/24 06/15/24 10:37 07:50 WBC 3.8 L RBC 3.69 L Hgb 11.9 L Hct 35.9 L Plt Count 244 ESR 6 Sodium 137 Potassium 3.9 Chloride 105 Carbon Dioxide 26 BUN 7 L Creatinine 0.74 AST 21 ALT 15 Alkaline Phosphatase 59 C-Reactive Protein 2.52 H 0.65 H Urine studies 06/15/24 07:50 Urine Protein 30 (1+) H Urine Blood Negative Urine RBC 0-2 Protein/Creatinin Ratio 0.05 immunology labs 03/10/24 10:37 Rheumatoid Factor < 13.0 Cycl Citrul Peptide IgG <16 KURT Screen POSITIVE A KURT Titer 1:160 H KURT Pattern Nuclear, Speckled A SS-A/Ro Antibody <1.0 NEG SS-B/La Antibody <1.0 NEG Sm (Slade) Antibody <1.0 NEG SM/MORTGAGE LOAN REVIEWER IgG Antibody <1.0 NEG Scl-70 Scleroderma Ab <1.0 NEG Double Strand DNA Ab <1 Anti-ds DNA (Crithidia) Negative Beta-2-GPI IgG Ab <2.0 Beta-2-GPI IgA Ab <2.0 Beta-2-GPI IgM Ab <2.0 Anti-Cardiolipin IgG Ab <2.0 Anti-Cardiolipin IgM Ab <2.0 Complement C3 157 Complement C4 20 Assessment & Plan Assessment & Plan (1) Undifferentiated connective tissue disease: Code(s): M35.9 - Systemic involvement of connective tissue, unspecified Category: Medical Plan: #UCTD Patient is a 28-year-old female with undifferentiated connective tissue disease here today for follow up. Doing better on Plaquenil monotherapy. Of note her inflammatory markers have trended down nicely Plan - Hydroxychloroquine 200mg bid - RTC 4 months - Labs before visit: CBC, CMP, ESR, CRP, C3, C4, dsDNA, UA, UPC (2) Fibromyalgia: Code(s): M79.7 - Fibromyalgia Category: Medical Plan: #Fibromyalgia Patient also has a component of fibromyalgia was evidenced by multiple tender points on examination. She is already on gabapentin 300 mg p.o. b.i.d.. on GLP 1 for weight loss with success Plan - Continue gabapentin 300mg bid - Encouraged light exercise and stretching (3) Encounter for monitoring of hydroxychloroquine therapy: Code(s): Z51.81 - Encounter for therapeutic drug level monitoring; Z79.899 - Other custodial (current) drug therapy Plan: #Long-term Use of Hydroxychloroquine Discussed with patient the risks and benefits of hydroxychloroquine in managing the rheumatic condition Benefits include: - Reduced pain, reduce mortality, maintenance of remission and reduction of flares Risks include: - GI upset, skin hyperpigmentation, retinal toxicity (especially after more than 5 years of use), myopathy Advised yearly ophthalmology visits Plan I spent 30 minutes reviewing the record and labs, taking a history, examining the patient, discussing the treatment plan and documenting in the medical record Orders: Orders Complement C4 4 Months M35.9 - Systemic involvement of connective tissue, unspecified C Reactive Protein 4 Months M35.9 - Systemic involvement of connective tissue, unspecified Erythrocyte Sedimentation Rate 4 Months M35.9 - Systemic involvement of connective tissue, unspecified Protein Creatinine Ratio, Ur 4 Months M35.9 - Systemic involvement of connective tissue, unspecified Complement C3 4 Months M35.9 - Systemic involvement of connective tissue, unspecified Complete Blood Count Auto Diff 4 Months M35.9 - Systemic involvement of connective tissue, unspecified Comprehensive Met. Panel 4 Months M35.9 - Systemic involvement of connective tissue, unspecified Anti DNA DS Antibody 4 Months M35.9 - Systemic involvement of connective tissue, unspecified UA w Microscopic 4 Months M35.9 - Systemic involvement of connective tissue, unspecified Coding Level of Care Code Est Pt Level 4 (45140) Complex EM visit Add On G2211 Diagnoses Undifferentiated connective tissue disease M35. Fibromyalgia M79.7 Encounter for monitoring of hydroxychloroquine therapy Z51.81; Z79.899
[2024-06-17 07:50] VITALS: BP 100/60; PULSE 86; RESP 16; O2SAT 98; BMI 26.6
== END 2024-06-17 08:07 | disposition home or self-care (01) ==
PROVIDERS: PCP Family Medicine; Visit Provider Student in an Organized Health Care Education/Training Program
DX: M35.89 Other specified systemic involvement of connective tissue (principal); M79.7 Fibromyalgia; Z51.81 Encounter for therapeutic drug level monitoring; Z79.899 Other long term (current) drug therapy
CPT/HCPCS: 99214; G2211

== ENCOUNTER → 2024-06-17 07:39 | Outpatient (BNVA) | payer OTHER, SELFPAY | PROVIDERS: Visit Provider Student in an Organized Health Care Education/Training Program | DX: M35.9 Systemic involvement of connective tissue, unspecified (principal); R63.5 Abnormal weight gain ==

== ENCOUNTER 2024-07-09 07:55 | Outpatient (AMB) | payer OTHER, SELFPAY ==
--- NOTE | 2024-07-09 07:15 | A.OFFVIS_ITS ---
Vital Signs 07/09/24 08:01 Height 5 ft 2 in Weight 141 lb 1.533 oz BMI 25.8 BP 108/62 Blood Pressure Location Rt brachial Position Sitting Pulse 85 Pulse Source Pulse Oximeter Pulse Oximetry (%) 97 Oxygen Delivery Method Room Air Intake Visit Reasons: wt gain Intake Note: Patient presents today for a follow-up on Weight Management: Coating Machine Feeder Required: No Accompanied by: Self / Same As Patient Allergies carbamazepine Allergy (Mild, Verified 07/09/24 08:03) Hives HPI Comments Details: This is a 29-year-old white female sent to endocrinology for evaluation of normal weight gain was last seen 06/04/2024. She was seen prior to this by Dr. Meadows.. At that time he advised she stop compounded semaglutide which was prescribed by and a prescription for Zepbound 2.5mg was started. At this point in time she is faulkner paying for Zepbound as her insurance requires participation in a three-month program prior to approval of weight loss medication. Today I reviewed the specific requirements from her insurance company. Unfortunately the requirements state that the the BMI must be above 27 in order to have insurance cover the medication. She would like to continue on a faulkner pay basis until she reaches her goal of 118. She has both lupus and fibromyalgia and feels that when she felt the best physically that was her weight. She is being seen weekly by a appliances sample maker in [place]. She has a eating disorder of body dysphoria. 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 She does not log her intake of food as she feels this triggers guilt. She balances her food and does eat 3 healthy meals per day. She has lost 13% of her weight BMI now 25.8 Weight: 04/06/24 163 lb (weight at time of consult) 07/09/24 141 lb She uses mindfulness, meditation and yoga for stress management. She is currently doing a conquer challenge which involves selecting a mythical figure (Kiran Fernández) and doing a physical challenge of completing 70 miles in 3 months. She likes to bike in his planning to do this. She is slightly behind on her target of reaching 70 miles. 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 When she was taking the compounded semaglutide she was having some nausea which was relieved by Zofran. She has discontinued the Zofran since starting Zepbound. Her bowel movements have been more frequent. She did notice an interaction with OTC headache medication and Zepbound which caused her heart to race. She has discontinued the OTC medication and has been consistently wearing her glasses and that has helped with the headaches. She is currently taking control pills and is not actively planning . She is consistently using condoms in addition to the control pill while she is taking Zepbound. She has been faulkner paying for zepbound. [facility] Medical History Obesity Weight gain Fibromyalgia Undifferentiated connective tissue disease Polyarthralgia Family History Mother History of thyroid disease Social History Household Members: Spouse Housing: Apartment Alcohol intake: current Comment: Rare Patient Tobacco Use Status: Never used Tobacco Physical Exam Vital Signs: Last Vital Signs Pulse 85 07/09/24 08:01 BP 108/62 07/09/24 08:01 Pulse Ox 97 07/09/24 08:01 Oxygen Delivery Method Room Air 07/09/24 08:01 BMI result Body Mass Index 25.8 Const Other: Absence of Cushingoid features. Absence of acromegalic features. In no acute distress. Good eye contact. Neck exam reveals nl size thyroid about 15 gms. No thyroid nodules palpable. Heart S1 S2, Reg R/R. No M/R G. Skin exam reveals absence of vitiligo or acanthosis nigricans. Assessment & Plan Assessment & Plan (1) Obesity: Code(s): E66.9 - Obesity, unspecified Category: Medical Plan: This is a 29-year-old with a history of obesity, lupus and fibromyalgia who is doing well with her weight reduction efforts. She will continue seeing a appliances sample maker on a regular basis. Is following a balanced meal plan and exercising regularly. Prescription was sent for his up bound 2.5mg. She will continue to faulkner pay for this as she does not meet the insurance requirements of having a BMI over 27. She will be seen back in early fall. She will continue using backup control method in addition to her OCPs in his aware that Zepbound decreases the effectiveness a control pill. Medications: Refilled tirzepatide (weight loss) (Zepbound) 2.5 mg (0.5 mL) subcut QWEEK 4 weeks 2 mL 5RF Coding Level of Care Code Est Pt Level 4 (50413) Complex EM visit Add On G2211 Diagnoses Obesity E66.9
[2024-07-09 08:01] VITALS: BP 108/62; PULSE 85; O2SAT 97; BMI 25.8
== END 2024-07-09 08:25 | disposition home or self-care (01) ==
LOC: HO.ENCR 07:56
PROVIDERS: Visit Provider Nurse Practitioner Adult Health
DX: E66.9 Obesity, unspecified (principal)
CPT/HCPCS: 99214; G2211

== ENCOUNTER → 2024-07-09 07:55 | Outpatient (BNVA) | payer OTHER, SELFPAY | PROVIDERS: Visit Provider Nurse Practitioner Adult Health ==

== ENCOUNTER 2024-10-08 14:18 | Outpatient (REF) | payer OTHER, SELFPAY ==
--- OUTSIDE RECORDS SUMMARY | 2024-10-08 14:22 | XMS_ITS | Encounter Summary ---
Author Organization [facility] Address [address] [employer] [facility] [address] [place] [phone] Phone Care Team Providers Care Photography Editor Name Role Phone Pcp, Unknown Primary Care Provider Unavailabl e Pcp, Unknown Primary Care Provider Unavailabl e Pcp, Unknown Unavailable Unavailable Mir Angela MD Primary Care Provider [phone] Anastasiia Sheridan CNP Primary Care Provid er Encounter Details Date Type Department Care Team (Late st Contact Info) Description 05/09/2023 Procedure Pass [address] [place] [address] Social History Tobacco Use Types Packs/Day Years Used Date Smoking Tobacco: Never Assessed Education Answer Date Recorded Are you interested in more education? Not on jamie e 06/08/2022 Are you concerned about learning? Not on file 06/08/2022 No 06/08/2022 No 06/08/2022 Digital Access Answer Date Recorded No 07/09/2022 No 07/09/2022 Reliable internet access at home? Not on file 07/09/2022 Device with a working camera? Not on file Comments Unknown Sex and Gender Information Value Date Recorded Sex Assigned at Female 10/23/2023 8:09 AM EDT Legal Sex Female 8:15 PM EST Gender Identity Female 10/23/2023 8:09 AM EDT Sexual Orientation Bisexual 01/27/2024 5: 53 PM EST documented as of this encounter Plan of Treatment Upcoming Encounters Date Type Department Care Team (Late st Contact Info) Description 03/29/2025 4:00 PM EST Office Visit [facility] Neurology at [place] [address] [place] [address] Edvin Bojorquez MD, MPH [address] [facility], [address] [place] [address] [email or web address] 05/05/2025 2:00 PM EDT Office Visit [facility] [address] [place] [address] [place] [address] Anastasiia Sheridan CNP [address] [place] [phone] [email or web address] documented as of this encounter Visit Diagnoses Not on filedocumented in this encounter Additional Health Concerns Infection Onset Date Last Indicated Resolved Time CoV-Risk 01/17/2024 01/17/2024 01/28/2024 1:22 AM EST documented as of this encounter Care Teams Photography Editor Relationship Specialty Start Date End Date Pcp, Unknown PCP - General 04/21/21 10/07/23 Pcp, Unknown PCP - General 10/08/23 01/02/24 Mir Angela MD [address] [place] [phone] PCP - General Family Medicine 01/03/24 04/25/24 Anastasiia Sheridan CNP [address] [place] [id number] [email or web address] PCP - General Nurse Practitioner 04/26/24 Pcp, Unknown 10/08/23 documented as of this encounter Additional Source Comments The information contained in this document represents components of the legal health record. It is not the complete legal health record.[facility]
--- OUTSIDE RECORDS SUMMARY | 2024-10-08 14:22 | XMS_ITS | Encounter Summary ---
Author Organization [facility] Address [address] [facility] [address] [place] [phone] Phone Care Team Providers Care Senior Investment Manager Name Role Phone Pcp, Unknown Primary Care Provider Unavailabl e Pcp, Unknown Primary Care Provider Unavailabl e Pcp, Unknown Unavailable Unavailable Mir Angela MD Primary Care Provider [phone] Anastasiia Sheridan [facility] Primary Care Provid er Reason for Referral * MRI/CAT Scan - Closed Specialty Diagnoses / Procedures Referred By Lorraine shabazz Referred To Contact Radiology Diagnoses NDPH (new daily persistent headache) Frontal lobe and executive function deficit Procedures MRI Brain Mir Angela MD [address] [place] [address] Phone: tel: fax: [email or web address] Referral ID Status Reason Start Date Expiration Date Visits Re quested Visits Authorized [id number] Closed 05/09/2023 05/08/2024 1 1 Encounter Details Date Type Department Care Team (Late st Contact Info) Description 05/09/2023 Transcribe Orders Virtual Department [address] [place] [address] Mir Angela MD [address] [place] [phone] NDPH (new daily persistent headache) (Primary Dx); Frontal lobe and executive function deficit Social History Tobacco Use Types Packs/Day Years [...] Description 03/29/2025 4:00 PM EST Office Visit [facility] Neurology at [place] [id number] [facility] [address] [place] [phone] Edvin Bojorquez MD, MPH [address] [address] [email or web address] 05/05/2025 2:00 PM EDT Office Visit [facility] [address] [place] [address] [place] [address] Anastasiia Sheridan, YARD WAREHOUSE WORKER [address] [facility], 2nd [place] [address] [email or web address] documented as of this encounter Results * MRI BRAIN WITHOUT CONTRAST (05/25/2023 11:52 AM EDT) Anatomical Region Laterality Modality Head Magnetic Resonan ce 05/25/2023 8:27 PM EDT Impressions 05/26/2023 7:44 PM EDT Low-lying cerebellar tonsils measuring approximate 5 mm below the foramen magnum. Normal rounded configuration of the cerebellar tonsils, and no evidence of syrinx in the partially imaged portion of the cervical spinal cord. 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 Narrative 05/26/2023 7:44 PM EDT MRI BRAIN WITHOUT CONTRAST Referring clinician's provided indication for this examination in [facility]: Outside Radiology Order; NDPH TECHNIQUE: MRI BRAIN WITHOUT CONTRAST Multi-sequence, multi-planar MRI of the brain was performed without intravenous contrast. COMPARISON: None FINDINGS: Brain Parenchyma: Low-lying cerebellar tonsils measuring approximate 5 mm below the foramen magnum, with a normal rounded configuration, and resulting moderate crowding of the foramen magnum. No evidence of acute infarct, mass lesion, or hemorrhage. Ventricular System and Extra-Axial Spaces: Normal. No evidence of midline shift or hydrocephalus. Extracranial Structures: Arterial flow voids in the skull base are present. Procedure Note Tesfaye Rivera MD - 05/26/2023 MRI BRAIN WITHOUT CONTRAST Referring clinician's provided indication for this examination in Epic:Outside Radiology Order; NDPH TECHNIQUE: MRI BRAIN WITHOUT CONTRAST Multi-sequence, multi-planar MRI of the brain was performed withoutintravenous contrast. COMPARISON: None FINDINGS: Brain Parenchyma: Low-lying cerebellar tonsils measuring approximate 5 mmbelow the foramen magnum, with a normal rounded configuration, andresulting moderate crowding of the foramen magnum. No evidence of acuteinfarct, mass lesion, or hemorrhage. Ventricular System and Extra-Axial Spaces: Normal. No evidence of midlineshift or hydrocephalus. Extracranial Structures: Arterial flow voids in the skull base arepresent. IMPRESSION: Low-lying cerebellar tonsils measuring approximate 5 mm below the foramenmagnum. Normal rounded configuration of the cerebellar tonsils, and noevidence of syrinx in the partially imaged portion of the cervical spinalcord. 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 Mir Angela MD IMG MR HEAD/NECK Final Result documented in this encounter Visit Diagnoses Diagnosis NDPH (new daily persistent headache)- Primary New daily persistent headache Frontal lobe and executive function deficit NDPH (new daily persistent headache) New daily persistent headache Frontal lobe and executive function deficit documented in this encounter Additional Health Concerns Infection Onset Date Last Indicated Resolved Time CoV-Risk 01/17/2024 01/17/2024 01/28/2024 1:22 AM EST documented as of this encounter Care Teams Senior Investment Manager Relationship Specialty Start Date End Date Pcp, Unknown PCP - General 04/21/21 10/07/23 Pcp, Unknown PCP - General 10/08/23 01/02/24 Mir Angela MD [address] [place] [id number] PCP - General Family Medicine 01/03/24 04/25/24 Anastasiia Sheridan CNP [address] [place] [address], [address] [place] [address] PCP - General Nurse Practitioner 04/26/24 Pcp, Unknown 10/08/23 documented as of this encounter Additional Source Comments The information contained in this document represents components of the legal health record. It is not the complete legal health record.[facility]
--- OUTSIDE RECORDS SUMMARY | 2024-10-08 14:23 | XMS_ITS | Clinical Summary ---
Author Organization [facility] Address [address] [facility] [address] [place] [address] Phone Care Team Providers Care Sample Color Maker Name Role Phone Pcp, Unknown Unavailable Unavailable Anastasiia Sheridan [facility] Primary Care Provid er Allergies Active Allergy Reactions Criticality Noted Date Comments Carbamazepine Hives 01/12/2024 Medications FLUoxetine (PROZAC) 20 MG capsule Take 20 mg by mouth daily. 4 Active AUBRA 0.1-20 mg-mcg per tablet 84 tablet, 0 Refill(s), 0 Refills, 07/02/23 14:08:00 EDT, Partial fill upon patient request if the prescription is for a schedule II opioid drug. 4 Active gabapentin (NEURONTIN) 300 MG capsule 2 po TID 180 capsule 3 5 Active hydroxychloroqu ine (PLAQUENIL) 200 mg tablet Take 200 mg by mouth daily. 5 Active tirzepatide (ZEPBOUND SUBQ) Inject 2.5 mg under the skin once a week. 5 Active hydrOXYzine (ATARAX) 25 MG tabletIndicatio ns:Vulvodynia Take 1-2 tablets (25-50 mg total) by mouth nightly at bedtime as needed (for pelvic pain and/or sleep). 60 tablet 2 5 Active OXcarbazepine (TRILEPTAL) 150 MG IMMEDIATE release tablet 1 po twice daily X 5 days then 2 po twice daily 120 tablet 2 Active Active Problems Problem Noted Date Diagnosed Date Increased thirst 05/06/2024 Assessment & Plan (06/07/2024 6:31 PM EDT): Increased dryness in skin and eyes reported, potentially related to lupus or indicative of Sjogren's syndrome. - Using eyedrops every hour to manage dry eyes. - Retest for Sjogren's antibodies will be conducted to confirm or rule out this condition. - Blood sugar levels will be checked to rule out metabolic causes of increased thirst and dryness. Acute left-sided low back pain 05/06/2024 Assessment & Plan (06/07/2024 6:31 PM EDT): Likely unrelated to vaginal or pelvic pain. - Possible causes include muscle spasm affecting a nerve or inflammation in the sacroiliac joint or lower back where the pelvis articulates. - Advised to monitor back pain and apply heat to the area to increase blood flow and relax muscles if pain becomes more frequent. - Gentle stretching exercises before bedtime recommended to alleviate discomfort. Recurrent major depressive disorder 04/26/2024 Assessment & Plan (04/26/2024 6:54 PM EDT): The patient has a history of depression, current sx moderate per screening. - She is currently on fluoxetine 20 mg daily; no reported issues with current medication regimen. - Emphasized the importance of cognitive skills and encouraged pt to connect with a therapist. Discussed that the best outcomes, with lowest chance of remission occurs with a combination of medication, counseling and good self-care: healthy eating, adequate sleep, avoiding negative psychoactive substances [like alcohol, caffeine] and regular exercise. Eating disorder 04/26/2024 Assessment & Plan (04/26/2024 6:51 PM EDT): The patient has a history of an eating disorder. - She reports that her current medication regimen, including tirzepatide 0.25 mg weekly, has helped with self-esteem and mobility. Vitamin D deficiency 04/26/2024 Assessment & Plan (04/26/2024 6:54 PM EDT): Hx of low vitamin d. No current supplement, she will consider. 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 No improvement with treatment for BV or OTC treatment for yeast. Recent vaginitis swab negative. D/dx discussed: Symptoms may be indicative of interstitial cystitis, although the possibility of inflammatory vaginitis cannot be excluded, nor can potential contributions from pelvic floor issues or vascular congestion in the pelvis. - UA will be collected to rule-out current UTI. - Hydroxyzine 25 mg or 50 mg at bedtime has been prescribed, with instructions to start with one tablet and increase to two if necessary. - If there is no improvement with hydroxyzine, amitriptyline may be considered as an alternative treatment option. - If diagnosis remains elusive, GROVE WORKER referral for possible tissue biopsy may also be considered. Assessment & Plan (04/26/2024 6:49 PM EDT): The patient reports vaginal burning for the past 2 weeks, with recent spotting over the last 2 days. She attempted treatment with Monistat OTC without improvement. - A pelvic exam was performed, and a vaginitis swab was taken to test for yeast, trich, and bacterial vaginosis (BV). The presence of villafuerte-brownish discharge suggests a possible BV diagnosis. We discussed options including waiting vs treating presumptively. Elects to wait but agrees to reach out if symptoms worsening. - She was advised to consider using boric acid suppositories, which can be inserted vaginally, to help restore the vaginal pH. She was instructed to avoid sexual intercourse for 4 hours post-application and to use a panty liner due to potential discharge from the suppository. - If the swab results are positive for BV, antibiotic treatment will be initiated. Surveillance for control, oral contracepti ves 04/26/2024 Assessment & Plan (04/26/2024 6:55 PM EDT): Continues on combined oral contraceptive pills. Content with this method of contraception. Periods are usually light and regular. Recently with spotting. Denies any missed pills. 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 - She is currently on Plaquenil and sees a literary agent, Dr. Avery at [facility]. - Reports improvement in symptoms with current medication regimen. Trigeminal neuralgia of left side of face 2023 Assessment & Plan (04/26/2024 6:50 PM EDT): The patient has a history of trigeminal neuralgia, primarily on the left side. - She is currently on oxcarbazepine and gabapentin for management. - She reports that since starting treatment for trigeminal neuralgia, she has not experienced headaches. TGN was initially thought to be migrainous vs cluster headaches. - Continued monitoring of symptoms and medication effectiveness. Encounters Date Type Department Care Team Description 07/26/2024 8:30 AM EDT Telemedicine [facility] [place] [address] Melonie Franks PA-C Trigeminal neuralgia (Primary Dx); Trigeminal neuralgia of left side of face from Last 3 Months Immunizations Immunization Administration Dates Next Due BCG 10/14/2005 COVID-19 (Pre-12/02) Bebo Vaccine, rS-Ad26, PF 09/17/2020 COVID-19 (Pre-12/02) Moderna Vaccine, mRNA, PF 12/12/2020 COVID-19 Pfizer Comirnaty Vaccine 12+ 11/15/2022 HPV9 02/20/2022,09/11/2021,07/17/2021 Hepatitis B, unspecified formulation 01/29/2008, 05/25/2002,11/04/2001 Influenza, Unspecified Formulation 11/15/2022, MMR 11/06/2020,09/04/1994 Meningococcal B, unspecified Formulation 1993 Polio, Unspecified Formulation 6,09/04/1994,1993,07/03 Td, unspecified formulation 12/31/2018 Tdap 11/06/2020 Yellow Fever 01/29/2008 Family History Medical History Relation Comments Lupus Paternal Aunt Lupus Paternal Grandfather Lupus Paternal Uncle Breast cancer Neg Hx Colon cancer Neg Hx Ovarian cancer Neg Hx Relation Status Comments Paternal Aunt Paternal Grandfather Paternal Uncle Social History Tobacco Use Types Packs/Day Years Used Date Smoking Tobacco: Never Smokeless Tobacco: Never Tobacco Cessation:Counseling Given: Not Answered Alcohol Use Standard Drinks/Week Comments Not Currently 0 (1 standard drink = 0.6 oz pur e alcohol) Occassionally Child or Family Care Answer Date Record ed Do you have problems with on e of the following making it difficult for you to work, study, or receive health care? No 04/25/2024 Education Answer Date Recorded Are you interested in help w ith more adult education (for example, completing high school, GED, job training, learning the Faro[place] language, technical skills, or developing parenting skills)? No 04/25/2024 Are you concerned about learning? Not on file 04/25/2024 No 04/25/2024 Yes 04/25/2024 Food Answer Date Recorded Within the past 6 months we worried whether our food would run out before we got money to buy more. Never True 04/25/2024 Within the past 6 months the food we bought just didn't last and we didn't have enough money to get more. Never True Residential Stability Answer Date Recor ded What is your housing situation today? I have calderon sing 04/25/2024 How many times have you moved in the past 12 fri ths? One time 04/25/2024 Paying for Meds Answer Date Recorded Do you have trouble paying for medicines? No 04/25/2024 Paying Utility Bills Answer Date Record ed Do you have trouble paying your heating or elect ricity bill? No 04/25/2024 Transportation Answer Date Recorded Has the lack of transportati on kept you from medical appointments or from getting medications? No 04/25/2024 Unemployment Answer Date Recorded Are you currently unemployed or working on a part-time or temporary basis, and looking for work? No 04/25/2024 Digital Access Answer Date Recorded No 04/25/2024 Yes 04/25/2024 Do you have reliable internet access at home? Ye yonathan 04/25/2024 Do you have a device (e.g., phone, tablet, computer) with a working camera? Yes 04/25/2024 Intimate Partner Violence Answer Date R ecorded Are you denied basic needs s uch as food, clothing, or medical care? No 04/25/2024 In the past 12 months have y ou been in a relationship with a person who hurts, threatens, or tries to control you? No 04/25/2024 Are you denied basic needs s uch as food, clothing, or medical care? No 04/25/2024 In the past 12 months have y ou been in a relationship with a person who hurts, threatens, or tries to control you? No 04/25/2024 Comments No Sex and Gender Information Value Date Recorded Sex Assigned at Female 10/23/2023 8:09 AM EDT Legal Sex Female 8:15 PM EST Gender Identity Female 10/23/2023 8:09 AM EDT Sexual Orientation Bisexual 01/27/2024 5: 53 PM EST Last Filed Vital Signs Vital Sign Reading Time Taken Comments Blood Pressure 112/78 05/06/2024 9:54 AM EDT Pulse 89 05/06/2024 9:54 AM EDT Temperature 37.6 C (99.7 F) 01/17/2024 2:45 PM EST Respiratory Rate 16 01/17/2024 2:45 PM EST Oxygen Saturation 100% 05/06/2024 9:54 AM EDT Inhaled Oxygen Concentration - - Weight 69.9 kg (154 lb 3.2 oz) 05/06/2024 9:54 A M EDT Height 157.5 cm (5' 2 ) 01/19/2024 7:41 PM EST Body Mass Index 28.2 01/19/2024 7:41 PM EST Plan of Treatment Upcoming Encounters Date Type Department Care Team (Late st Contact Info) Description 03/29/2025 4:00 PM EST Office Visit [facility] Neurology at [address] [address] Edvin Bojorquez MD, MPH [address] [address] [email or web address] 05/05/2025 2:00 PM EDT Office Visit [facility] [address] [place] [address] Anastasiia Sheridan, WOOD SCRAP HANDLER [address] [facility], 2nd Floor [place] [address] [email or web address] Health Maintenance Due Date Last Done Comments COVID-19 VACCINE (2023-2 5 season) 2023 11/15/2022, 12/12/2020, 09/17/2020 REPEAT PHQ 05/26/2024 04/25/2024, 04/25/2024 INFLUENZA VACCINE (#1) 2024 , 11/16/2020 DEPRESSION SCREENING 04/25/2025 04/25/2024, 04/25/2024 PAP SMEAR 04/26/2029 04/26/2024, 11/16/2020 Adult Td,Tdap Booster 11/06/2030 11/06/2020 , 12/31/2018 MENINGOCOCCAL VACCINES (B) Aged Out 1995 N o longer eligible based on patient's age to complete this topic HEPATITIS C SCREENING Completed 11/25/2022 HIV ONE-TIME SCREENING (18-6 5 YEARS) Completed 11/25/2022 SMOKING STATUS SCREENING (On ce After 26 Yrs) Completed 04/26/2024 HEPATITIS A VACCINES Aged Out No long er eligible based on patient's age to complete this topic HIB VACCINES Aged Out No longer eligi ble based on patient's age to complete this topic MENINGOCOCCAL VACCINES (ACWY) Aged Out No longer eligible based on patient's age to complete this topic PNEUMOCOCCAL VACCINES (0-49 years) Aged Out No longer eligible b ased on patient's age to complete this topic Medical Devices Not on file Procedures Procedure Name Priority Date/Time Associated Diagnosis Comments PAP TEST Routine 04/26/2024 12:00 AM EDT HEPATITIS C ANTIBODY, QUALITATIVE Routine 11/25/2022 9:31 AM EDT from Last 3 Months or Most Recently Relevant to Health Maintenance Results * Pap Test (04/26/2024 12:00 AM EDT) 04/26/2024 04/27/2024 9:1 4 AM EDT Narrative SEE NARRATIVE - 05/04/2024 1:03 PM EDT [address] [address] Search Engine Optimization Specialist: Paul West MD GROVE WORKER Cytology Report FINAL DIAGNOSIS A. PAP SMEAR (THIN PREP) CE: SPECIMEN ADEQUACY: Satisfactory for evaluation; transformation zone present. INTERPRETATION: NEGATIVE FOR INTRAEPITHELIAL LESION OR MALIGNANCY. This specimen was analyzed by the automated ThinPrep Imaging System (Navita.) and the selected cai were reviewed by a ping pong table assembler. Electronically Signed Out By: TODD Mcekon(ASCP) The Pap test is a screening test primarily for squamous cancers and precursors and has associated false-negative and false-positive results. New technologies such as liquid-based preparations may decrease but will not eliminate all false-negative results. Regular sampling and follow-up of unexplained clinical signs and symptoms are recommended to minimize false negative results. PROCEDURES/ADDENDA HPV Testing (Requested) Ordered Date: 04/27/2024 A. PAP SMEAR (THIN PREP) CE: High-risk HPV Panel w/ extended genotyping NEG HPV 16-NEG HPV 18-NEG HPV 45-NEG HPV 33/58-NEG HPV 31-NEG HPV 56/59/66-NEG HPV 51-NEG HPV 52-NEG HPV 35/39/68-NEG Performed by real-time polymerase chain reaction (PCR) at [facility], [address] [place] [address] using the FDA-approved BD Onclarity9 HPV Assay with extended genotyping. Uses of the assay in scenarios other than those approved by the FDA should be considered off-label use. The accuracy and precision of this test for all other off-label specimen sources has been verified in the Cytopathology Laboratory of the [facility] and has not been cleared or approved by the U.S. Food and Drug Administration. Clinical correlation is advised. The assay assesses the E6/E7 DNA target and utilizes human beta globin as an internal control. Cytology and HPV testing are screening assays and should not be used as the sole means of detecting cancer. False-positives and false-negatives can occur. CLINICAL HISTORY Date of Last Menstrual Period: 03-25-2024 Contraceptive History: BCPs Other Clinical Conditions: Screening Pap SPECIMEN SOURCE A: PAP SMEAR (THIN PREP) CE Patient Name: KURT COUGHLIN : 1995 (Age: 28) Sex: F Institution: [facility] Location: [facility] Date of Collection: 04/26/2024 Date of Reported: 05/04/2024 13:03 Results to: Anastasiia Sheridan NP Anastasiia Sheridan CNP CYTOLOGY ORDERABLES Final Result SEE NARRATIVE * Hepatitis C antibody, qualitative (11/25/2022 9:31 AM EDT) Hepatitis C Antibody, qualitatitve - External Non Reactive Non Reactive 11/25/2022 9:31 AM EDT Impressions Anastasiia Sheridan CNP - 11/26/2022 2:42 PM EDT Not infected with HCV unless early or acute infection is suspected (which may be delayed in an immunocompromised individual), or other evidence exists to indicate HCV infection. Historical Provider LAB BLOOD ORDERABLES Fifi l Result from Last 3 Months or Most Recently Relevant to Health Maintenance Insurance [facility] [place] [address] [facility] [place] [address] [facility] CIGNA WELL[employer]ET CIGNA WELLFLEET CIGNA WELLFLEET Care Teams Sample Color Maker Relationship Specialty Start Date End Date Anastasiia Sheridan Radha, BARTOLO [address] [place] [address], [address] [place] [address] [email or web address] PCP - General Nurse Practitioner 04/26/24 Pcp, Unknown 10/08/23 Additional Source Comments The information contained in this document represents components of the legal health record. It is not the complete legal health record.[facility]
--- OUTSIDE RECORDS SUMMARY | 2024-10-08 14:23 | XMS_ITS | Encounter Summary ---
Author Organization [facility] Address [address] [facility] [address] [place] [phone] Phone Care Team Providers Care Picking Belt Operator Name Role Phone Pcp, Unknown Unavailable Unavailable Mir Angela MD Primary Care Provider [phone] Anastasiia Sheridan CNP Primary Care Provid er Encounter Details Date Type Department Care Team (Late st Contact Info) Description 01/09/2024 Procedure Pass [address] [place] [address] Social History Tobacco Use Types Packs/Day Years Used Date Smoking Tobacco: Never Smokeless Tobacco: Never Alcohol Use Standard Drinks/Week Comments Yes 0 (1 standard drink = 0.6 oz pur e alcohol) Occassionally Education Answer Date Recorded Are you interested in more education? Not on jamie e 06/08/2022 Are you concerned about learning? Not on file 06/08/2022 No 06/08/2022 No 06/08/2022 Digital Access Answer Date Recorded No 07/09/2022 No 07/09/2022 Reliable internet access at home? Not on file 07/09/2022 Device with a working camera? Not on file Intimate Partner Violence Answer Date R ecorded Are you denied basic needs s uch as food, clothing, or medical care? No 01/03/2024 In the past 12 months have y ou been in a relationship with a person who hurts, threatens, or tries to control you? No 01/03/2024 Are you denied basic needs s uch as food, clothing, or medical care? No 01/03/2024 In the past 12 months have y ou been in a relationship with a person who hurts, threatens, or tries to control you? No 01/03/2024 Comments No Sex and Gender Information Value [...] Description 03/29/2025 4:00 PM EST Office Visit [facility] Neurology at [address] [place] [address] Edvin [place]jorquez [place], MPH [address] [place] [address], [address] [address] [email or web address] 05/05/2025 2:00 PM EDT Office Visit [facility] [address] [place] [address] [place] [address] Anastasiia Sheridan CNP [address] [place] [address], [address] [place] [address] [email or web address] documented as of this encounter Visit Diagnoses Not on filedocumented in this encounter Additional Health Concerns Infection Onset Date Last Indicated Resolved Time CoV-Risk 01/17/2024 01/17/2024 01/28/2024 1:22 AM EST documented as of this encounter Care Teams Picking Belt Operator Relationship Specialty Start Date End Date Mir Angela MD [address] [place] [id number] PCP - General Family Medicine 01/03/24 04/25/24 Anastasiia Sheridan CNP [address] [place] [address], [address] [place] [address] [email or web address] PCP - General Nurse Practitioner 04/26/24 Pcp, Unknown 10/08/23 documented as of this encounter Additional Source Comments The information contained in this document represents components of the legal health record. It is not the complete legal health record.[facility]
[2024-10-08 16:16] LABS: Alanine Aminotransferase 13 U/L (0-31); Albumin Level 4.4 g/dL (3.5-5.0); Alkaline Phosphatase 51 U/L (39-117); Anion Gap 13 (12-20); Aspartate Amino Transferase 16 U/L (5-31); Blood Urea Nitrogen 12 mg/dL (9-16); Calcium 9.1 mg/dL (8.4-10.2); Carbon Dioxide 24 mmol/L (22-29); Chloride 104 mmol/L (96-108); Estimated Glomerular Filt Rate > 60; Potassium 3.8 mmol/L (3.3-5.1); Sodium 137 mmol/L (135-145); Total Protein 7.0 g/dL (6.5-8.0)
[2024-10-08 16:21] LABS: Appearance Urine Hazy; Glucose Urine UA Negative (Negative); PH 6.0 (5.0-9.0); Specific Gravity - Urine >= 1.030 (1.005-1.025); UMIC TRIGGER UA YES
[2024-10-08 17:22] LABS: Protein/Creatinine Ratio, Ur 0.05 (<0.2); Total Protein Urine Random 14 mg/dL (<12)
[2024-10-08 20:19] LABS: MANUAL DIFF FLAG NO
[2024-10-08 20:20] LABS: Hematocrit 36.3 % (37.0-47.0); Hemoglobin 12.7 g/dl (12.0-16.0); Imm Gran Abs Auto 0.05 X10*3/uL (0.00-0.03); Imm Gran Pct Auto 0.5 % (0.0-0.4); Lymphocytes Absolute Auto 2.4 X10*3/uL (1.2-4.9); Mean Corpuscular HGB Conc 35.0 g/dl (31.0-35.0); Mean Corpuscular Hemoglobin 33.7 pg (27.0-33.0); Mean Corpuscular Volume 96.3 fL (80.0-98.0); NRBC Abs Auto 0.000 X10*3/uL (0.0-0.012); NRBC Pct Auto 0.0 /100WBC (0.0-0.2); Platelet Count 308 X10*3/uL (160-400); Red Blood Count 3.77 X10*6/uL (4.20-5.50); White Blood Count 10.5 X10*3/uL (4.8-10.8)
== END 2024-10-08 14:19 | disposition home or self-care (01) ==
LOC: HO.LAB 14:18
PROVIDERS: Visit Provider Student in an Organized Health Care Education/Training Program
DX: M35.9 Systemic involvement of connective tissue, unspecified (principal)
CPT/HCPCS: 36415; 80053; 81001; 82570; 84156; 85025; 85652; 86140; 86160; 86225

== ENCOUNTER 2024-10-13 08:29 | Outpatient (AMB) | payer OTHER, SELFPAY ==
--- NOTE | 2024-10-13 08:35 | MHC.OFFVIS ---
Vital Signs 10/13/24 08:39 Height 5 ft 2 in Weight 136 lb 14.513 oz BMI 25.0 BP 102/70 Blood Pressure Location Rt brachial Position Sitting Pulse 84 Pulse Source Pulse Oximeter Pulse Oximetry (%) 98 Oxygen Delivery Method Room Air Intake Visit Reasons: follow up Intake Note: Patient presents for UCTD follow up. Allergies carbamazepine Allergy (Mild, Verified 10/13/24 08:39) Hives Medication List - Last Reconciled 10/13/24 by Karla Avery MD amoxicillin 500 mg PO TID fluoxetine (Prozac) 20 mg PO DAILY gabapentin 300 mg PO BID hydroxychloroquine (Plaquenil) 200 mg PO BID ibuprofen 800 mg PO TID levonorgestrel-ethinyl estrad 0.1-20 mg-mcg 1 tab PO DAILY oxcarbazepine 600 mg PO BID tirzepatide (weight loss) (Zepbound) 2.5 mg (0.5 mL) subcut QWEEK 4 weeks HPI Comments Details: Patient is a 29-year-old female with depression, trigeminal neuralgia and undifferentiated connective tissue disease here today for follow up Interval History: Patient last seen 06/17/24 with me - On Hydroxychloroquine 200mg bid - Tolerating medication - Noticed improvement in her flares and joint pain - On antibiotics for a tooth infection Today - On Hydroxychloroquine 200mg bid - Recently got back from a trip to [place] about 3 weeks ago - During the flight to [place] (10 hour flight) she experienced a flare of her disease characterized by myalgias, joint pain and frequent urination - She went to the community doctor and was given prednisone 40mg and ketofen for 1 week with improvement and she also received a shot of betamethasone for her return flight which was a better experience - Main complaints now are frequent urination and fatigue in her legs - Also had a flare in the early summer that did not respond ibuprofen 800mg Rheumatologic History: UCTD 01/2024 KURT 1:160, inflammatory joint pain, rashes, elevated CRP Plaquenil 03/2024 - effective Initial history: Patient states her history starts from when she was 14 years old when she started having polyarthralgias and was evaluated by a physician in [place]. At that time she was told she has fibromyalgia that her pain was related to her stress. 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 No medication was prescribed She again started to have issues at the age of 23 but was again told that it was related to fibromyalgia. In April 2023 patient started to have episodic joint pain involving hands, wrists, elbows, knees. These joint pains would not be associated with swelling but would be very responsive to prednisone given by her PCP. In June 2023 she was complaining of bilateral jaw pain and was initially thought to have TMJ arthritis but then was subsequently diagnosed with trigeminal neuralgia and started on carbamazepine. While on carbamazepine she started to experience ulcers in the mouth and an erythematous rash involving her entire body. The carbamazepine was stopped and she is currently on steroids (prednisone 40 mg). Has a very strong family history of lupus on both mom and dad's side. With respect to the joint pain she denies prolonged morning stiffness. She does note that sometimes her joints are swollen to the point where she can not get her rings on. Denies photosensitivity, alopecia, sicca symptoms, lymphadenopathy, chest pain/shortness of breath, foamy urine, lower extremity edema, muscle weakness, Raynaud's Also denies history of seizure, CVA, psychosis, history of kidney problems, history of cytopenias, history of VTE including PE or DVTs OB History: Never been Current Rheumatology Medication(s): Hydroxychloroquine 200 mg twice a day [facility] Medical History Obesity Weight gain Fibromyalgia Undifferentiated connective tissue disease Polyarthralgia Family History Mother History of thyroid disease Social History Household Members: Spouse Housing: Apartment Alcohol intake: current Comment: Rare Patient Tobacco Use Status: Never used Tobacco Review of Systems Const Details: Review of Systems Constitutional: Denies fever, chills, weight loss ENT: Denies vision changes, eye pain or eye redness, dental caries, dry mouth GI: Denies nausea, vomiting, diarrhea, abdominal pain, change in BM Pulm: Denies SOB, CASTELLANOS, hemoptysis, wheezing Cards: Denies chest pain, palpitations Skin: Denies Raynaud's, rash, nail changes, photosensitivity, [employer] CONSULTANT: Denies headaches, weakness, paresthesias, recurrent falls MSK: as per HPI All other systems reviewed and are unremarkable except noted above Physical Exam Exam Exam: Vital signs reviewed Physical Examination CONSTITUITIONAL Patient alert and cooperative. Well appearing and in no apparent painful distress MSK Hands Right Hand: Able to make a fist. No swelling or tenderness to palpation of the MCPs, PIPs or DIPs. No deformities noted. Left Hand: Able to make a fist. No swelling or tenderness to palpation of the MCPs, PIPs or DIPs. No deformities noted. Wrists Right Wrist: Full ROM to flexion and extension. No swelling or TTP Left Wrist: Full ROM to flexion and extension. No swelling or TTP Elbows Right Elbow: Full ROM. No swelling or TTP. No TTP of the medial epicondyle. No TTP of the lateral epicondyle Left Elbow: Full ROM. No swelling or TTP. No TTP of the medial epicondyle. No TTP of the lateral epicondyle Shoulders Right shoulder: Full ROM. No swelling noted. No TTP of the AC joint. No TTP of the subacromial bursa. No TTP of the posterior shoulder Left shoulder: Full ROM. No swelling noted. No TTP of the AC joint. No TTP of the subacromial bursa. No TTP of the posterior shoulder Hip bursa: Tenderness to palpation bilaterally Knees Right knee: Full ROM. No swelling noted. No TTP of the knee joint line. TTP of pes anserine bursa Left knee: Full ROM. No swelling noted. No TTP of the knee joint line. TTP of pes anserine bursa. Ankles Right ankle: Good ankle dorsiflexion and plantar flexion. No swelling. No TTP of the ankle joint Left ankle: Good ankle dorsiflexion and plantar flexion. No swelling. No TTP of the ankle joint Feet Right foot: Negative squeeze test Left foot: Negative squeeze test Tender points? Tenderness to palpation of the bilateral trapezius, supraspinatus, anterior costochondral junctions, bilateral suboccipital muscle insertions SKIN No rashes Vital Signs: Last Vital Signs Pulse 84 10/13/24 08:39 BP 102/70 10/13/24 08:39 Pulse Ox 98 10/13/24 08:39 Oxygen Delivery Method Room Air 10/13/24 08:39 BMI result Body Mass Index 25.0 Results Reviewed Results Reviewed: Laboratory Tests 06/15/24 10/08/24 07:50 14:35 WBC 10.5 RBC 3.77 L Hgb 12.7 Hct 36.3 L Plt Count 308 D ESR 5 Sodium 137 Potassium 3.8 Chloride 104 Carbon Dioxide 24 BUN 12 Creatinine 0.78 AST 16 ALT 13 C-Reactive Protein 0.65 H 0.68 H Urine studies 06/15/24 10/08/24 07:50 14:27 Urine Protein 30 (1+) H Urine Blood Negative Negative Urine RBC 0-2 0-2 Protein/Creatinin Ratio 0.05 0.05 Laboratory Tests 06/15/24 10/08/24 07:50 14:35 Double Strand DNA Ab Pending Complement C3 117 138 Complement C4 19 19 Immunology labs 03/10/24 10:37 Rheumatoid Factor < 13.0 Cycl Citrul Peptide IgG <16 KURT Screen POSITIVE A KURT Titer 1:160 H KURT Pattern Nuclear, Speckled A SS-A/Ro Antibody <1.0 NEG SS-B/La Antibody <1.0 NEG Sm (Slade) Antibody <1.0 NEG SM/MANAGER SALT IgG Antibody <1.0 NEG Scl-70 Scleroderma Ab <1.0 NEG Double Strand DNA Ab <1 Anti-ds DNA (Crithidia) Negative Beta-2-GPI IgG Ab <2.0 Beta-2-GPI IgA Ab <2.0 Beta-2-GPI IgM Ab <2.0 Anti-Cardiolipin IgG Ab <2.0 Anti-Cardiolipin IgM Ab <2.0 Assessment & Plan Assessment & Plan (1) Undifferentiated connective tissue disease: Comment: UCTD 01/2024 KURT 1:160, inflammatory joint pain, rashes, elevated CRP Plaquenil 03/2024 - effective Code(s): M35.9 - Systemic involvement of connective tissue, unspecified Category: Medical Plan: #UCTD Patient is a 29-year-old female with undifferentiated connective tissue disease here today for follow up. Doing better on Plaquenil monotherapy. Inflammatory markers stable Plan - Hydroxychloroquine 200mg bid - RTC 6 months - Labs before visit: CBC, CMP, ESR, CRP, C3, C4, dsDNA, UA, UPC (2) Fibromyalgia: Code(s): M79.7 - Fibromyalgia Category: Medical Plan: #Fibromyalgia Patient also has a component of fibromyalgia was evidenced by multiple tender points on examination. She is already on gabapentin 300 mg p.o. b.i.d.. on GLP 1 for weight loss with success Plan - Continue gabapentin 300mg bid - Start naltrexone 4.5mg daily - Encouraged light exercise and stretching (3) Encounter for monitoring of hydroxychloroquine therapy: Code(s): Z51.81 - Encounter for therapeutic drug level monitoring; Z79.899 - Other intermodal owner operator truck driver (current) drug therapy Plan: #Long-term Use of Hydroxychloroquine Discussed with patient the risks and benefits of hydroxychloroquine in managing the rheumatic condition Benefits include: - Reduced pain, reduce mortality, maintenance of remission and reduction of flares Risks include: - GI upset, skin hyperpigmentation, retinal toxicity (especially after more than 5 years of use), myopathy Advised yearly ophthalmology visits Plan I spent 30 minutes reviewing the record and labs, taking a history, examining the patient, discussing the treatment plan and documenting in the medical record Medications: New naltrexone 4.5 mg PO .nightly 90 caps 1RF 90 days M79.7 - Fibromyalgia Refilled hydroxychloroquine (Plaquenil) 200 mg PO BID 180 tabs 0RF M35.9 - Systemic involvement of connective tissue, unspecified Coding Level of Care Code Est Pt Level 4 (12783) Complex EM visit Add On G2211 Diagnoses Undifferentiated connective tissue disease M35.9 Fibromyalgia M79.7 Encounter for monitoring of hydroxychloroquine therapy Z51.81; Z79.899
[2024-10-13 08:39] VITALS: BP 102/70; PULSE 84; O2SAT 98; BMI 25.0
--- OUTSIDE RECORDS SUMMARY | 2024-10-13 08:55 | XMS_ITS | Encounter Summary ---
Author Organization [facility] Address [address] [facility] [address] [place] [address] Phone Care Team Providers Care Freight Car Repairer Name Role Phone Pcp, Unknown Primary Care Provider Unavailabl e Pcp, Unknown Primary Care Provider Unavailabl e Pcp, Unknown Unavailable Unavailable Mir Angela MD Primary Care Provider [phone] Anastasiia Sheridan CNP Primary Care Provid er Encounter Details Date Type Department Care Team (Late st Contact Info) Description 05/09/2023 Procedure Pass [address] [place] [address] Social History Tobacco Use Types Packs/Day Years [...] Description 03/29/2025 4:00 PM EST Office Visit [facility] Neurology at [place] [address] [place] [address] Edvin Bojorquez MD, MPH [address] [facility], [address] [place] [address] [email or web address] 05/05/2025 2:00 PM EDT Office Visit [facility] [address] [place] [address] [place] [address] Anastasiia Sheridan CNP [address] [place] [address] [email or web address] documented as of this encounter Visit Diagnoses Not on filedocumented in this encounter Additional Health Concerns Infection Onset Date Last Indicated Resolved Time CoV-Risk 01/17/2024 01/17/2024 01/28/2024 1:22 AM EST documented as of this encounter Care Teams Freight Car Repairer Relationship Specialty Start Date End Date Pcp, Unknown PCP - General 04/21/21 10/07/23 Pcp, Unknown PCP - General 10/08/23 01/02/24 Mir Angela MD [address] [place] [address] PCP - General Family Medicine 01/03/24 04/25/24 Anastasiia Sheridan CNP [address] [place] [address] PCP - General Nurse Practitioner 04/26/24 Pcp, Unknown 10/08/23 documented as of this encounter Additional Source Comments The information contained in this document represents components of the legal health record. It is not the complete legal health record.[facility]
--- OUTSIDE RECORDS SUMMARY | 2024-10-13 08:55 | XMS_ITS | Encounter Summary ---
Author Organization [facility] Address [address] [facility] [address] [place] [address] Phone Care Team Providers Care Crtts Name Role Phone Pcp, Unknown Primary Care Provider Unavailabl e Pcp, Unknown Primary Care Provider Unavailabl e Pcp, Unknown Unavailable Unavailable Mir Angela MD Primary Care Provider [phone] Anastasiia Sheridan [facility] Primary Care Provid er Reason for Referral * MRI/CAT Scan - Closed Specialty Diagnoses / Procedures Referred By Lorraine shabazz Referred To Contact Radiology Diagnoses NDPH (new daily persistent headache) Frontal lobe and executive function deficit Procedures MRI Brain Mir Angela MD [address] [place] [address] Phone: tel: fax: [email or web address] Referral ID Status Reason Start Date Expiration Date Visits Re quested Visits Authorized [id number] Closed 05/09/2023 05/08/2024 1 1 Encounter Details Date Type Department Care Team (Late st Contact Info) Description 05/09/2023 Transcribe Orders Virtual Department [address] [place] [address] Mir Angela MD [address] [place] [address] NDPH (new daily persistent headache) (Primary Dx); [...] Description 03/29/2025 4:00 PM EST Office Visit [facility] Neurology at [place] [address] [facility] [address] [place] [address] Edvin Bojorquez MD, MPH [address] [address] [email or web address] 05/05/2025 2:00 PM EDT Office Visit [facility] [address] [place] [address] [place] [address] Anastasiia Sheridan, AUTOMATION AND CONTROLS SUPERVISOR [address] [facility], 2nd [place] [address] [email or web address] documented as of this encounter Results * [...] clinician's provided indication for this examination in [facility]: Outside Radiology Order; NDPH TECHNIQUE: MRI [...] documented as of this encounter Care Teams Crtts Relationship Specialty Start Date End Date Pcp, Unknown PCP - General 04/21/21 10/07/23 Pcp, Unknown PCP - General 10/08/23 01/02/24 Mir Angela MD [address] [place] [address] PCP - General Family Medicine 01/03/24 04/25/24 Anastasiia Sheridan CNP [address] [place] [address], 2nd [place] [address] PCP - General Nurse Practitioner 04/26/24 Pcp, Unknown 10/08/23 documented as of this encounter Additional Source Comments The information contained in this document represents components of the legal health record. It is not the complete legal health record.[facility]
--- OUTSIDE RECORDS SUMMARY | 2024-10-13 08:56 | XMS_ITS | Clinical Summary ---
Author Organization [facility] Address [address] [facility] [address] [place] [address] Phone Care Team Providers Care Behavioral Health Director Name Role Phone Pcp, Unknown Unavailable Unavailable Anastasiia Sheridan [facility] Primary Care Provid er Allergies Active [...] treatment option. - If diagnosis remains elusive, TRIAGE ASSISTANT referral for possible tissue biopsy may also [...] is currently on Plaquenil and sees a labor custodian, [place] [facility] - Reports improvement in symptoms [...] Team Description 07/26/2024 8:30 AM EDT Telemedicine [facility] [place] [address] Melonie Franks PA-C Trigeminal neuralgia (Primary Dx); [...] high school, GED, job training, learning the Citizen [place] language, technical skills, or developing parenting skills)? [...] Description 03/29/2025 4:00 PM EST Office Visit [facility] Neurology at [address] [address] Edvin Bojorquez MD, MPH [address] [address] [email or web address] 05/05/2025 2:00 PM EDT Office Visit [facility] [address] [place] [address] Anastasiia Sheridan, FERMENTER WINE [address] [facility], 2nd Floor [place] [address] [email or web address] Health Maintenance Due Date Last Done Comments [...] SEE NARRATIVE - 05/04/2024 1:03 PM EDT [address] [address] Chemical Educator: Paul West MD TRIAGE ASSISTANT Cytology Report FINAL DIAGNOSIS A. PAP SMEAR (THIN PREP) CE: SPECIMEN ADEQUACY: Satisfactory for evaluation; transformation zone present. INTERPRETATION: NEGATIVE FOR INTRAEPITHELIAL LESION OR MALIGNANCY. This specimen was analyzed by the automated ThinPrep Imaging System ([employer] and the selected cai were reviewed by a advocacy director. Electronically Signed Out By: TODD Mckeon(ASCP) The Pap test is a screening test [...] by real-time polymerase chain reaction (PCR) at [facility], [address] [place] [address] using the FDA-approved BD Onclarity9 HPV Assay with extended genotyping. Uses of the assay in scenarios other than those approved by the FDA should be considered off-label use. The accuracy and precision of this test for all other off-label specimen sources has been verified in the Cytopathology Laboratory of the [facility] and has not been cleared or [...] : 1995 (Age: 28) Sex: F [facility] Date of Collection: 04/26/2024 Date of Reported: [...] Most Recently Relevant to Health Maintenance Insurance [facility] Member Subscriber Plan / Payer (Ef fective 2020-Present) Name:Kurt Coughlin Relation to Subscriber:Self Name:Kurt Coughlin Payer ID:[id number] ([facility]) Type:PPO Address: [place] [id number] [place] [phone] Member Subscriber Plan / Payer (Ef fective 2020-Present) Name:Artis Kurt Stein Relation to Subscriber:Self Name:Artis Eliz Payer ID:[id number] ([facility]) Type:PPO Address: [facility] [id number] [place] [phone] Member Subscriber Plan / Payer (Ef fective 2020-Present) Name:Artis Eliz Relation to Subscriber:Self Name:Artis Kurt Stein Payer ID:[id number] ([facility]) Type:PPO Address: [place] [id number] [place] [phone] Member Subscriber Plan / Payer (Ef fective 2020-Present) Name:Kurt Coughlin Relation to Subscriber:Self Name:Kurt Coughlin Payer ID:[id number] ([facility]) Type:PPO Address: [facility] [address] [place] [address] [place] [address] Member Subscriber Plan / Payer ( fective 2020-Present) Name:Artis Eliz Relation to Subscriber:Self Name:Josebhavanatanmay Eliz Payer ID:[id number] ([facility]) Type:PPO Address: [facility] [id number] [place] [phone] [facility] Member Subscriber Plan / Payer ( fective 2020-Present) Name:Artis Eliz Relation to Subscriber:Self Name:Artis Kurt Stein Payer ID:[id number] ([facility]) Type:PPO Address: [facility] [address] [place] [address] [facility] [place] [address] Member Subscriber Plan / Payer (Ef fective 2020-Present) Name:Kurt Coughlin Relation to Subscriber:Self Name:Kurt Coughlin Payer ID:[id number] ([facility]) Type:PPO Address: [address] [phone] [facility] Member Subscriber Plan / Payer (Ef fective 2020-Present) Name:Kurt Coughlin Relation to Subscriber:Self Name:Kurt Coughlin Payer ID:[id number] ([facility]) Type:PPO Address: [facility] [id number] [place] [phone] [facility] Member Subscriber Plan / Payer ( fective 2020-Present) Name:Kurt Coughlin Relation to Subscriber:Self Name:Kurt Coughlin Payer ID:[id number] ([facility]) Type:PPO Address: [facility] [id number] [place] [phone] [facility] CIGNA WELLFLEET CIGNA WELLFLEET CIGNA WELLFLEET Care Teams Behavioral Health Director Relationship Specialty Start Date End Date Anastasiia Sheridan Radha, BARTOLO [address] [place] [address], [address] [place] [address] [email or web address] PCP - General Nurse Practitioner 04/26/24 Pcp, Unknown 10/08/23 Additional Source Comments The information contained in this document represents components of the legal health record. It is not the complete legal health record.[facility]
--- OUTSIDE RECORDS SUMMARY | 2024-10-13 08:56 | XMS_ITS | Encounter Summary ---
Author Organization [facility] Address [address] [employer] [facility] [address] [place] [address] Phone Care Team Providers Care Brain Wave Technician Name Role Phone Pcp, Unknown Unavailable Unavailable Mir Angela MD Primary Care Provider [phone] Anastasiia Sheridan CNP Primary Care Provid er Encounter Details Date Type Department Care Team (Late st Contact Info) Description 01/09/2024 Procedure Pass [address] [place] [address] Social History Tobacco Use Types Packs/Day Years [...] Description 03/29/2025 4:00 PM EST Office Visit [facility] Neurology at [address] [place] [address] Edvin Bojorquez MD, MPH [address] [place] [address], [address] [address] [email or web address] 05/05/2025 2:00 PM EDT Office Visit [facility] [address] [place] [address] [place] [address] Anastasiia Sheridan CNP [address] [place] [address], 2[address] [place] [address] [email or web address] documented as of this encounter Visit Diagnoses Not on filedocumented in this encounter Additional Health Concerns Infection Onset Date Last Indicated Resolved Time CoV-Risk 01/17/2024 01/17/2024 01/28/2024 1:22 AM EST documented as of this encounter Care Teams Brain Wave Technician Relationship Specialty Start Date End Date Mir Angela MD [address] [place] [address] PCP - General Family Medicine 01/03/24 04/25/24 Anastasiia Sheridan CNP [address] [place] [address], 2[address] [place] [address] [email or web address] PCP - General Nurse Practitioner 04/26/24 Pcp, Unknown 10/08/23 documented as of this encounter Additional Source Comments The information contained in this document represents components of the legal health record. It is not the complete legal health record.[facility]
== END 2024-10-13 09:10 | disposition home or self-care (01) ==
LOC: HO.RHES 08:30
PROVIDERS: Visit Provider Student in an Organized Health Care Education/Training Program
DX: M35.9 Systemic involvement of connective tissue, unspecified (principal); M79.7 Fibromyalgia; Z51.81 Encounter for therapeutic drug level monitoring; Z79.899 Other long term (current) drug therapy
CPT/HCPCS: 99214; G2211

== ENCOUNTER 2024-12-23 15:58 | Outpatient (AMB) | payer OTHER, SELFPAY ==
[2024-12-23 16:03] VITALS: BP 98/64; PULSE 80; O2SAT 98; BMI 25.7
--- NOTE | 2024-12-23 16:03 | A.OFFVIS_ITS ---
Vital Signs 12/23/24 16:03 Height 5 ft 2 in Weight 140 lb 6.951 oz BMI 25.7 BP 98/64 Blood Pressure Location Lt brachial Position Sitting Pulse 80 Pulse Source Pulse Oximeter Pulse Oximetry (%) 98 Oxygen Delivery Method Room Air Intake Visit Reasons: wt gain Intake Note: Patient present today for Obesity follow up. Allergies carbamazepine Allergy (Mild, Verified 10/13/24 08:39) Hives HPI Comments Details: This is a 29-year-old white female sent to endocrinology for evaluation of normal weight gain. Patient states weight gain of lbs over short period of time . She has not tried formal diets . She has seen a registered pharmacy technician in [place] . .She was prescribed semaglutide by RO started last wk. Feels nauseous but better with Zofran . Bowel movements more frequent with semaglutidee. She is currently on a control pill. She is not actively planning . Snores at night . Not taking steroids on regular basis . No thyroid problems . No sx of Antonio's Syndrome . Last saw Melissa Acosta NP on 07/09/2024. Currently on Zepbound 2.5 mg Q weekly . Weight has been stable since last visit. Wt loss has helped with energy and able to do pilates [facility] Medical History Obesity Weight gain Fibromyalgia Undifferentiated connective tissue disease Polyarthralgia Family History Mother History of thyroid disease Social History Household Members: Spouse Housing: Apartment Alcohol intake: current Comment: Rare Patient Tobacco Use Status: Never used Tobacco Physical Exam Vital Signs: Last Vital Signs Pulse 80 12/23/24 16:03 BP 98/64 12/23/24 16:03 Pulse Ox 98 12/23/24 16:03 Oxygen Delivery Method Room Air 12/23/24 16:03 BMI result Body Mass Index 25.7 Assessment & Plan Assessment & Plan (1) Weight gain: Code(s): R63.5 - Abnormal weight gain Category: Medical Plan: This is a 28-year-old white female with a history of abnormal weight gain. currently being treated with Zepbound 2.5 mg Q weekly plan is to increase Zepbound to 5 mg Qwkly . Went over side effects of Zepbound again with pt. Also explained to use second form of control Medications: New Zepbound (tirzepatide (weight loss)) [facility] [id number] 5 mg (0.5 mL) subcut QWEEK 2 mL 4RF NS Discontinued tirzepatide (weight loss) (Zepbound) Discontinued Reason: Doctor's Order 2.5 mg (0.5 mL) subcut QWEEK 4 weeks 4 mL 5RF Coding Level of Care Code Est Pt Level 3 (40189) Diagnoses Weight gain R63.5
--- OUTSIDE RECORDS SUMMARY | 2024-12-23 18:42 | XMS_ITS | Encounter Summary ---
Author Organization [facility] Address [address] [facility] [address] [place] [address] Phone Care Team Providers Care Educational Programming Director Name Role Phone Pcp, Unknown Unavailable Unavailable Anastasiia Sheridan AUTO SERVICE ADVISOR Primary Care Provid er Reason for Visit * Reason Comments Medication Refill Encounter Details Date Type Department Care Team (Late st Contact Info) Description 11/13/2024 Refill [facility] Neurology at [place] [address] [facility] [address] [place] [address] Melonie Franks PA-C [address] [place] [address] Department of Neurology, [place] [address] [email or web address] Refill Social History Tobacco Use Types Packs/Day Years Used Date Smoking Tobacco: Never Smokeless Tobacco: Never Alcohol Use Standard Drinks/Week Comments Not Currently [...] high school, GED, job training, learning the American language, technical skills, or developing parenting skills)? [...] your housing situation today? I have calderon eugene 04/25/2024 How many times have you moved [...] have reliable internet access at home? Ye s 04/25/2024 Do you have a device (e.g., [...] PM EST documented as of this encounter Progress Notes * Maddie Sukhdeep Shay - 11/15/2024 8:53 AM EDT Too early documented in this encounter Plan of Treatment Upcoming Encounters Date Type Department Care Team (Late st Contact Info) Description 03/29/2025 4:00 PM EST Office Visit [facility] Neurology at [place] [address] [facility] [address] [place] [address] Edvin Bojorquez MD, MPH, APOORVA [address] [facility], [address] [place] [address] [email or web address] 05/05/2025 2:00 PM EDT Office Visit [facility] [address] [place] [address] [place] [address] Anastasiia Sheridan CNP [address] [facility], [address] [place] [address] [email or web address] documented as of this encounter Visit Diagnoses Not on filedocumented in this encounter Additional Health Concerns Assessment Noted Time PHQ-9 Depression Total Score: 14 025 5:25 PM EDT PHQ-2 Depression Total Score: 4 04/26/19 25 5:25 PM EDT documented as of this encounter Care Teams Educational Programming Director Relationship Specialty Start Date End Date Anastasiia Sheridan CNP [address] [place] [address], [address] [place] [address] [email or web address] PCP - General Nurse Practitioner 04/26/24 Pcp, Unknown 10/08/23 documented as of this encounter Additional Source Comments The information contained in this document represents components of the legal health record. It is not the complete legal health record.[facility]
--- OUTSIDE RECORDS SUMMARY | 2024-12-23 18:42 | XMS_ITS | Clinical Summary ---
Author Organization [facility] Address [address] [facility] [address] [place] [address] Phone Care Team Providers Care Slot Floor Supervisor Name Role Phone Pcp, Unknown Unavailable Unavailable Anastasiia Sheridan [facility] Primary Care Provid er Allergies Active Allergy Reactions Criticality Noted Date Comments Carbamazepine Hives 01/12/2024 Medications FLUoxetine (PROZAC) 20 MG capsule Take 20 mg by mouth daily. 10/03/19 24 Active AUBRA 0.1-20 mg-mcg per tablet 84 tablet, 0 Refill(s), 0 Refills, 07/02/23 14:08:00 EDT, Partial fill upon patient request if the prescription is for a schedule II opioid drug. 07/02/19 24 Active hydroxychloro quine (PLAQUENIL) 200 mg tablet Take 200 mg by mouth daily. 04/19/19 25 Active tirzepatide (ZEPBOUND SUBQ) Inject 2.5 mg under the skin once a week. 03/31/19 25 Active hydrOXYzine (ATARAX) 25 MG tabletIndicat ions:Vulvodyn ia Take 1-2 tablets (25-50 mg total) by mouth nightly at bedtime as needed (for pelvic pain and/or sleep). 60 tablet 2 05/07/19 25 Active amitriptyline (ELAVIL) 25 MG tablet Take 1 tablet (25 mg total) by mouth nightly at bedtime. 90 tablet 1 11/13/19 25 Active gabapentin (NEURONTIN) 300 MG capsule TAKE 2 BY MOUTH 3 TIMES A DAY 180 capsule 3 12/16/19 25 Active OXcarbazepine (TRILEPTAL) 150 MG IMMEDIATE release tablet 1 po twice daily X 5 days then 2 po twice daily 120 tablet 2 12/21/19 25 Active gabapentin (NEURONTIN) 300 MG capsule 2 po TID 180 capsule 3 04/09/19 25 025 Discontinued OXcarbazepine (TRILEPTAL) 150 MG IMMEDIATE release tablet 1 po twice daily X 5 days then 2 po twice daily 120 tablet 2 07/27/19 25 025 Discontinued(R eorder) Active Problems Problem Noted Date Diagnosed Date [...] treatment option. - If diagnosis remains elusive, RISK ENGINEER referral for possible tissue biopsy may also [...] is currently on Plaquenil and sees a pier runner, Dr. Avery at [facility]. - Reports improvement in symptoms with current [...] Encounters Date Type Department Care Team Description 12/11/2024 Refill [facility] Neurology at [address] [address] Edvin Bojorquez MD, MPH, APOORVA Medication Refill 11/13/2024 Refill [facility] Neurology at [address] [address] Melonie Franks PA-C Medication Refill 11/12/2024 10:00 AM EDT Telemedicine [facility] Neurology at [address] [address] Linda Velez PA-C Trigeminal neuralgia of left side of face (Primary Dx) 11/09/2024 9:37 PM EDT - 11/09/2024 11:59 PM EDT Hospital Encounter [facility] Specimen Processing [address] [place] [address] Dyllan Cabral PA Discharge Disposition: Home or Self Care 11/09/2024 Transcribe Orders [facility] Phleb Main [address] [place] [address] Dyllan Cabral, PA Acute cystitis without hematuria (Primary Dx) from Last 3 Months Immunizations Immunization Administration [...] high school, GED, job training, learning the Pashto language, technical skills, or developing parenting skills)? [...] Description 03/29/2025 4:00 PM EST Office Visit [facility] Neurology at [address] [place] [address] Edvin Bojorquez MD, MPH, APOORVA [address] [place] [address], [address] [place] [address] [email or web address] 05/05/2025 2:00 PM EDT Office Visit [facility] [address] [place] [address] Anastasiia Sheridan, FUNDER [address] [facility], 2nd [place] [address] [email or web address] Health Maintenance Due Date Last Done Comments REPEAT PHQ 05/26/2024 04/25/2024, 04/25/2024 INFLUENZA VACCINE (#1) 2024 11/15/2022, 2020 COVID-19 VACCINE ( season) 2024 11/15/2022, 12/12/2020, 09/17/2020 DEPRESSION SCREENING 04/25/2025 04/25/2024, 04/26/19 25 PAP SMEAR 04/26/2029 04/26/2024, 11/16/2020 Adult Td,Tdap Booster 11/06/2030 11/06/2020, 019 MENINGOCOCCAL VACCINES (B) Aged Out 1995 N o longer eligible based on patient's age to complete this topic IPV VACCINES Completed 09/06/1995, 08/11, 1993, Additional history exists HEPATITIS C SCREENING Completed 11/25/2022 , 11/25/2022, 11/25/2022, Additional history exists HIV ONE-TIME SCREENING (18-65 YEARS) Completed 11/25/2022 SMOKING STATUS SCREENING (Once After 26 Yrs) Completed 04/26/2024 HEPATITIS A VACCINES Aged Out No long er eligible based on patient's age to complete this topic HIB VACCINES Aged Out No longer eligi ble based on patient's age to complete this topic MENINGOCOCCAL VACCINES (ACWY) Aged Out No longer eligible based on patient's age to complete this topic PNEUMOCOCCAL VACCINES (0-49 years) Aged Out No longer eligible based on patient's age to complete this topic Medical Devices Not on file Procedures Procedure Name Priority Date/Time Associated Diagnosis Comments URINE CULTURE Routine 11/09/2024 9:39 PM EDT Acute cystitis without hematuria URINE SEDIMENT Routine 11/09/2024 8:43 PM EDT URINALYSIS Routine 11/09/2024 8:43 PM EDT PAP TEST Routine 04/26/2024 12:00 AM EDT HEPATITIS C ANTIBODY, QUALITATIVE Routine 11/25/2022 9:31 AM EDT from Last 3 Months or Most Recently Relevant to Health Maintenance Results * (ABNORMAL) Urine Culture (11/09/2024 9:39 PM EDT) Special Requests None 11/09/2024 9:39 PM EDT [facility] Urine Culture >100,000 colony forming units per mL ESCHERICHIA COLI(A) 11/10/2024 12:20 PM EDT [facility] Urine (Urine) 11/09/2024 9:3 9 PM EDT 11/09/2024 9:41 PM EDT Narrative Organism Antibiotic Method Susceptibility Escherichia coli Ampicillin LUZ METHOD >=32: Resistant Escherichia coli Ampicillin + Sulbactam LUZ METHOD <=2: Susceptible Escherichia coli Cefepime LUZ METHOD <=0.12: Susceptible Escherichia coli Ceftazidime LUZ METHOD <=0.5: Susceptible Escherichia coli Ceftriaxone LUZ METHOD <=0.25: Susceptible Escherichia coli Ciprofloxacin LUZ METHOD <=0.06: Susceptible Escherichia coli Extended Spectrum B-lactamase LUZ MET HOD Negative Escherichia coli Gentamicin LUZ METHOD <=1: Susceptible Escherichia coli Levofloxacin LUZ METHOD <=0.12: Susceptible Escherichia coli Nitrofurantoin LUZ METHOD <=16: Susceptible Escherichia coli Piperacillin-tazobactam LUZ METHOD <=4: Susceptible Escherichia coli Trimethoprim/sulfamethoxazole LUZ MET HOD <=20: Susceptible Escherichia coli Cefazolin(urine) LUZ METHOD <=1: Susceptible Comment: [facility] MICROBIOLOGY CULTURE OR DERABLES Final Result [address] [address] * (ABNORMAL) Urine sediment (11/09/2024 8:43 PM EDT) WBC 21-49(A) NONE SEEN /hpf [facility] RBC 0-2(A) NONE SEEN /hpf [facility] URINE EPITHELIAL 0-4(A) NONE SEEN [facility] MUCUS 2+(A) NONE SEEN /hpf [facility] BACTERIA 2+(A) NONE SEEN /hpf [facility] 11/09/2024 8:43 PM EDT 11/09/2024 9:43 PM EDT [facility] URINE ORDERABLES Final Result [address] [address] * (ABNORMAL) Urinalysis (11/09/2024 8:43 PM EDT) COLOR Yellow Yellow [facility] CLARITY HAZY [facility] GLUCOSE Negative Negative [facility] BILI Negative Negative [facility] KETONES Negative Negative [facility] SPECIFIC GRAVITY >1.030 1.005 - 1.030 [facility] BLOOD Trace(A) Negative [facility] PH 6.0 5.0 - 8.0 [facility] Protein-UA Trace(A) Negative [facility] NITRITE Positive(A) Negative [facility] Leukocyte esterase, ur Trace(A) Negative [facility] 11/09/2024 8:43 PM EDT 11/09/2024 9:43 PM EDT [facility] URINE ORDERABLES Final Result Performing Organization Address [facility]/State/ZIP Co de Phone Number [address] [address] * Pap Test (04/26/2024 12:00 AM EDT) Report [address] [address] Corporate Director Talent Assessment: Paul West MD RISK ENGINEER Cytology Report FINAL DIAGNOSIS A. PAP SMEAR (THIN PREP) CE: SPECIMEN ADEQUACY: Satisfactory for evaluation; transformation zone present. INTERPRETATION: NEGATIVE FOR INTRAEPITHELIAL LESION OR MALIGNANCY. This specimen was analyzed by the automated ThinPrep Imaging System ([employer].) and the selected cai were reviewed by a photographic technician. Electronically Signed Out By: TODD Mckeon(ASCP) The [...] by real-time polymerase chain reaction (PCR) at [facility], [address] [place] [address] using the FDA-approved BD Onclarity9 HPV Assay with extended genotyping. Uses of the assay in scenarios other than those approved by the FDA should be considered off-label use. The accuracy and precision of this test for all other off-label specimen sources has been verified in the Cytopathology Laboratory of the [facility] and has not been cleared or approved [...] : 1995 (Age: 28) Sex: F Institution: [facility] Location: [facility] Date of Collection: 04/26/2024 Date of Reported: 05/04/2024 13:03 Results to: Anastasiia Sheridan NP [facility] Final Diagnosis A. PAP SMEAR (THIN PREP) CE: SPECIMEN ADEQUACY: Satisfactory for evaluation; transformation zone present. INTERPRETATION: NEGATIVE FOR INTRAEPITHELIAL LESION OR MALIGNANCY. This specimen was analyzed by the automated ThinPrep Imaging System ([employer].) and the selected cai were reviewed by a photographic technician. [facility] Results\Inter pretation A. PAP SMEAR (THIN PREP) CE: High-risk HPV Panel w/ extended genotyping NEG HPV 16-NEG HPV 18-NEG HPV 45-NEG HPV 33/58-NEG HPV 31-NEG HPV 56/59/66-NEG HPV 51-NEG HPV 52-NEG HPV 35/39/68-NEG Performed by real-time polymerase chain reaction (PCR) at [facility], [address] [place] [address] using the FDA-approved BD Onclarity HPV Assay with extended genotyping. Uses of the assay in scenarios other than those approved by the FDA should be considered off-label use. The accuracy and precision of this test for all other off-label specimen sources has been verified in the Cytopathology Laboratory of the [facility] and has not been cleared or approved by the U.S. Food and Drug Administration. Clinical correlation is advised. The assay assesses the E6/E7 DNA target and utilizes human beta globin as an internal control. Cytology and HPV testing are screening assays and should not be used as the sole means of detecting cancer. False-positives and false-negatives can occur. [facility] Conversion Type (Conversion Source) 04/26/2024 04/27/2024 9:14 AM EDT Anastasiia Sheridan CNP CYTOLOGY ORDERABLES Edited Result - Final [address] [address] * Hepatitis C antibody, qualitative (11/25/2022 9:31 AM EDT) Hepatitis C Antibody, qualitatitve - External Non Reactive Non Reactive 11/25/2022 9:31 AM EDT Impressions Anastasiia Sheridan CNP - 11/26/2022 2:42 PM EDT Not infected with HCV unless early or acute infection is suspected (which may be delayed in an immunocompromised individual), or other evidence exists to indicate HCV infection. us Historical Provider LAB BLOOD BKR ORDERABLES Final Result from Last 3 Months or Most Recently Relevant to Health Maintenance [place] [address] [place] [address] [place] [address] [place] [address] [employer]IG[employer] CIGNA [facility]ARE [facility] C[facility] WELLFLEET The Vetted [facility] Spun[employer] The Vetted Net[facility]ARE [facility] [employer] The Vetted NetMULTICARE [facility] [place] [address] [facility] Care Teams Slot Floor Supervisor Relationship Specialty Start Date End Date Anastasiia Sheridan CNP [address] [place] [address], [address]nd [place] [address] PCP - General Nurse Practitioner 04/26/24 Pcp, Unknown 10/08/23 Additional Source Comments The information contained in this document represents components of the legal health record. It is not the complete legal health record.[facility]
--- OUTSIDE RECORDS SUMMARY | 2024-12-23 18:42 | XMS_ITS | Encounter Summary ---
Author Organization [facility] Address [address] [facility] [address] [place] [address] Phone Care Team Providers Care Buzzle Buffer Name Role Phone Pcp, Unknown Primary Care Provider Unavailabl e Pcp, Unknown Primary Care Provider Unavailabl e Pcp, Unknown Unavailable Unavailable Mir Angela MD Primary Care Provider [phone] Anastasiia Sheridan [facility] Primary Care Provid er Reason for Referral * MRI/CAT Scan - Closed Specialty Diagnoses / Procedures Referred By Lorraine shabazz Referred To Contact Radiology Diagnoses NDPH (new daily persistent headache) Frontal lobe and executive function deficit Procedures MRI Brain Mir Angela MD [address] [place] [address] Phone: tel: fax: [email or web address] Referral ID Status Reason Start Date Expiration Date Visits Re quested Visits Authorized [id number] Closed 05/09/2023 05/08/2024 1 1 Encounter Details Date Type Department Care Team (Late st Contact Info) Description 05/09/2023 Transcribe Orders Virtual Department [address] [place] [address] Mir Angela MD [address] [place] [address] NDPH (new daily persistent headache) (Primary Dx); [...] Description 03/29/2025 4:00 PM EST Office Visit [facility] Neurology at [address] [place] [address] Edvin Bojorquez MD, MPH, APOORVA [address] [place] [address] [email or web address] 05/05/2025 2:00 PM EDT Office Visit [facility] [address] [place] [address] [place] [address] Anastasiia Sheridan, CEO & FOUNDER [address] [facility], 2nd [place] [address] [email or web address] documented as of this [...] clinician's provided indication for this examination in [facility]: Outside Radiology Order; NDPH TECHNIQUE: MRI BRAIN [...] may reflect a borderline Chiari I malformation. us Mir Angela MD IMG MR HEAD/NECK Final [...] documented as of this encounter Care Teams Buzzle Buffer Relationship Specialty Start Date End Date Pcp, Unknown PCP - General 04/21/21 10/07/23 Pcp, Unknown PCP - General 10/08/23 01/02/24 Mir Angela MD [address] [place] [address] PCP - General Family Medicine 01/03/24 04/25/24 Anastasiia Sheridan CNP [address] [place] [address], [address] [place] [address] PCP - General Nurse Practitioner 04/26/24 Pcp, Unknown 10/08/23 documented as of this encounter Additional Source Comments The information contained in this document represents components of the legal health record. It is not the complete legal health record.[facility]
--- OUTSIDE RECORDS SUMMARY | 2024-12-23 18:42 | XMS_ITS | Encounter Summary ---
Author Organization [facility] Address [address] [facility] [address] [place] [address] Phone Care Team Providers Care Backup Operator Name Role Phone Pcp, Unknown Primary Care Provider Unavailabl e Pcp, Unknown Primary Care Provider Unavailabl e Pcp, Unknown Unavailable Unavailable Mir Angela MD Primary Care Provider Anastasiia Sheridan CNP Primary Care Provid er Encounter Details Date Type Department Care Team (Late st Contact Info) Description 05/09/2023 Procedure Pass [address] [place] [address] Social History Tobacco Use Types Packs/Day Years [...] 4:00 PM EST Office Visit [facility] Neurology at [place] [address] [facility] [address] [place] [address] Edvin Bojorquez MD, MPH, APOORVA [address] [facility], [address] [place] [address] [email or web address] 05/05/2025 2:00 PM EDT Office Visit [facility] [address] [place] [address] [place] [address] Anastasiia Sheridan CNP [address] [place] [phone] [email or web address] documented as of this encounter Visit Diagnoses Not on filedocumented in this encounter Additional Health Concerns Infection Onset Date Last Indicated Resolved Time CoV-Risk 01/17/2024 01/17/2024 01/28/2024 1:22 AM EST documented as of this encounter Care Teams Backup Operator Relationship Specialty Start Date End Date Pcp, Unknown PCP - General 04/21/21 10/07/23 Pcp, Unknown PCP - General 10/08/23 01/02/24 Mir Angela MD [address] [place] [address] PCP - General Family Medicine 01/03/24 04/25/24 Anastasiia Sheridan CNP [address] [place] [address] PCP - General Nurse Practitioner 04/26/24 Pcp, Unknown 10/08/23 documented as of this encounter Additional Source Comments The information contained in this document represents components of the legal health record. It is not the complete legal health record.[facility]
--- OUTSIDE RECORDS SUMMARY | 2024-12-23 18:42 | XMS_ITS | Encounter Summary ---
Author Organization [facility] Address [address] [place] [phone] Phone Care Team Providers Care Asset Specialist Name Role Phone Pcp, Unknown Unavailable Unavailable Mir Angela MD Primary Care Provider [phone] Anastasiia Sheridan CNP Primary Care Provid er Encounter Details Date Type Department Care Team (Late st Contact Info) Description 01/09/2024 Procedure Pass [address] [place] [address] Social History Tobacco Use Types Packs/Day Years [...] Description 03/29/2025 4:00 PM EST Office Visit [facility] Neurology at [address] [address] Edvin Bojorquez MD, MPH, AP[place] [address] [place] [id number] [email or web address] 05/05/2025 2:00 PM EDT Office Visit [facility] [address] [place] [address] [place] [id number] Anastasiia Sheridan CNP [address] [facility], [address] [place] [address] [email or web address] documented as of this encounter Visit Diagnoses Not on filedocumented in this encounter Additional Health Concerns Infection Onset Date Last Indicated Resolved Time CoV-Risk 01/17/2024 01/17/2024 01/28/2024 1:22 AM EST documented as of this encounter Care Teams Asset Specialist Relationship Specialty Start Date End Date Mir Angela MD [address] [place] [address] [place] [id number] PCP - General Family Medicine 01/03/24 04/25/24 Anastasiia Sheridan CNP [address] [place] [address], [address] [place] [address] [email or web address] PCP - General Nurse Practitioner 04/26/24 Pcp, Unknown 10/08/23 documented as of this encounter Additional Source Comments The information contained in this document represents components of the legal health record. It is not the complete legal health record.[facility]
== END 2024-12-23 16:25 | disposition home or self-care (01) ==
LOC: HO.ENCR 15:58
PROVIDERS: Visit Provider Internal Medicine Endocrinology, Diabetes & Metabolism
DX: R63.5 Abnormal weight gain (principal)
CPT/HCPCS: 99213